=== PATIENT | female | born 1955 | race Caucasian/White ===

== ENCOUNTER 2018-04-02 12:05 | Inpatient (IN) ==
[2018-04-02] MEDS ORDERED: SALINE FLUSH 10ml SYRINGE IV PRN (12:36)
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
--- NOTE | 2018-04-02 13:05 | XRay Report ---
Indication: Fever PROCEDURE: XR chest 1V: Encounter: Initial Comparison: March 21, 2018 Findings: Large right upper lobe lung mass is again noted. There is postobstructive atelectasis in the right upper lobe. The remaining lung garza are grossly clear. No pneumothorax or pleural effusion. Heart size and mediastinal contours are stable. Pulmonary vascularity is normal. Impression: No focal pneumonia seen. .
[2018-04-02] MEDS ORDERED: LEVOFLOXACIN PB 750 MG/150 ML BAG IV SCH (13:15)
[2018-04-02] MEDS: NS 1,000 ML IV SCH (13:21)
[2018-04-02] MEDS ORDERED: MORPHINE SULFATE 4mg INJECTION IVP PRN (13:27)
[2018-04-02] MEDS ORDERED: HYDROCODONE/APAP 5mg/325mg TABLET PO PRN (13:27)
[2018-04-02] MEDS ORDERED: ALPRAZolam 0.25 MG TABLET PO PRN (13:28)
[2018-04-02] MEDS ORDERED: MetroNIDAZOLE PB 500 MG/100 ML BAG IV SCH (15:00)
[2018-04-02] MEDS ORDERED: SALINE FLUSH 10ml SYRINGE ONE (15:54)
[2018-04-02] MEDS ORDERED: IOHEXOL 300mg/ml 75ml INJECTION ONE (15:54)
[2018-04-02] MEDS: NYSTATIN 500,000 units/5 ml ORAL LIQUID PO SCH ×2 (16:39→22:02)
[2018-04-02] MEDS: GUAIFENESIN 400MG TABLET PO SCH ×2 (16:39→22:04)
--- NOTE | 2018-04-02 16:40 | CT Scan Report ---
Indication: Fever, lung CA PROCEDURE: CT chest w con: Encounter: Initial Comparison: Chest x-ray dated April 02, [address] dated March 19, 2018 Technique: Axial CT images were performed through the chest after the administration of intravenous contrast. Coronal and sagittal two-dimensional reformats. Automated Exposure Control and Iterative Reconstruction dose reducing techniques were utilized. Contrast: Omnipaque 300 74 mL Findings: Right upper lobe lung mass appears larger than the prior CT measuring 8.5 x 7.7 cm in diameter on axial image #19 compared to 7.7 x 7.8 cm on the prior study. There is persistent postobstructive atelectasis in the right apex. Stable probable intrapulmonary lymph node along the right minor fissure. Mild dependent atelectasis in both lower lobes. No pneumothorax. Interval development of cavitation within the mass with a few small foci of gas seen on axial images 18 through 22. No axillary adenopathy. Right paratracheal and hilar adenopathy is slightly worsened. Precarinal node on axial image #27 measures 1.4 cm in short axis. Right hilar node on axial image #28 measures 1.4 cm in short axis compared to 1.2 cm previously. Heart size is normal. Slight interval enlargement in a small to moderate anterior pericardial effusion. Great vessels are unchanged. The upper abdomen shows no acute findings. Impression: Interval enlargement of the right upper lobe mass with areas of central necrosis and developing cavitation. The patient has reportedly not yet undergone any type of radiation or chemotherapy to cause necrosis within the tumor. Given this, a developing cavitary pneumonia/abscess within the mass is possible. The mass and lymphadenopathy has grown in the past two weeks. Case was discussed with the ordering physician at 1630 on April 02, 2018. .
[2018-04-02] MEDS ORDERED: GUAIFENESIN LA 600 MG TABLET PO PRN (16:50)
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
[2018-04-02] MEDS: AMPICILLIN/SULBACTAM 3 G in NS 100 ML IV SCH ×2 (18:31→22:03)
[2018-04-02] MEDS: ACETAMINOPHEN 500 MG TABLET PO PRN (23:56)
[2018-04-03] MEDS: NS 1,000 ML IV SCH ×6 (02:42→23:14)
[2018-04-03] MEDS: AMPICILLIN/SULBACTAM 3 G in NS 100 ML IV SCH ×4 (04:05→23:35)
[2018-04-03] MEDS: LEVOTHYROXINE 112 MCG TABLET PO SCH (06:20)
--- NOTE | 2018-04-03 08:49 | Progress Note ---
Oncology Subjective Less fever overnight. She only had 2 drenching night sweats. She is anxious about being in the hospital and does not want to be here. Had skeletal x-ray this morning. Tearful and encounter. Exam Vital signs: Temperature 101.2 F H 04/03/18 08:20 Pulse Rate 102 H 04/03/18 08:20 Respiratory Rate 20 04/03/18 08:20 Blood Pressure 120/66 04/03/18 08:20 Pulse Oximetry 95 04/03/18 08:20 - Constitutional no acute distress - Routine HEENT Exam Head: Present: normocephalic Eye: Present: EOMI, PERRL Throat: other (thrush) - Routine Neck Exam Present: supple. Absent: lymphadenopathy - Routine Respiratory Exam Present: decreased breath sounds, rales (right posterior), rhonchi - Routine Cardiovascular Exam Present: RRR, no murmur - Routine Abdominal Exam Present: soft, non tender - Routine Extremities Exam Absent: clubbing, edema - Routine Skin Exam Present: dry, warm, ecchymosis (at the site of IV infiltration left arm) - Routine Neurological Exam Present: alert, CN II-XII intact - Routine Psychiatric Exam Present: anxious Oncology Results - Labs CBC & Chem 7: 04/03/18 04:35 04/03/18 04:35 Labs: Short CBC 04/02/18 04/03/18 Range/Units 13:27 04:35 WBC 22.8 H 20.6 H (4.5-11.0) T/MM3 Hgb 9.8 L 9.4 L (12-16) GM/DL Hct 31.0 L 30.3 L (36-46) % Plt Count 763 H* 735 H (130-400) T/MM3 BMP 04/02/18 04/03/18 13:26 04:35 Sodium 141 142 Potassium 4.3 4.2 Chloride 99 105 D Carbon Dioxide 28 26 BUN 15.0 12.0 Creatinine 0.6 L 0.6 L Glucose 105 109 Calcium 9.4 9.3 Liver Function 04/02/18 04/03/18 Range/Units 13:26 04:35 Total Bilirubin < 0.10 L (0.20-1.30) MG/DL AST 38 H (14-36) U/L ALT 38 H (1-35) U/L Alkaline Phosphatase 163 H (38-126) U/L Albumin 3.7 3.3 L (3.5-5.0) g/dL Urine 04/02/18 Range/Units 15:39 Urine Color Yellow (YELLOW) Urine Clarity Clear Urine pH 6.0 (5.0-8.0) Ur Specific [place] >=1.030 H (1.015-1.025) Urine Protein Trace A (NEGATIVE) Urine Glucose (UA) Negative (NEGATIVE) Laboratory Tests 04/02/18 04/02/18 04/03/18 13:26 13:27 04:35 WBC 22.8 H 20.6 H Plt Count 763 H* 735 H Neutrophils % (Manual) 81.0 H 87.0 H Neutrophils # (Manual) 18.5 H 17.9 H Albumin 3.7 Globulin 4.1 H 04/03/18 04:35 WBC Plt Count Neutrophils % (Manual) Neutrophils # (Manual) Albumin 3.3 L Globulin Assessment and Plan Assessment and Plan: 1. Squamous cell, poorly differentiated carcinoma of right upper lobe with extensive mass that extends to the chest wall almost to the hilum it is developed cavitation or formation with changes worrisome for postobstructive pneumonia or cavitation and infection. Associated with elevated white count and symptoms of infection. Staging with MRI brain, CT scan of abdomen and pelvis, bone scan showed no evidence of distant metastasis. Lymph nodes are present in the mediastinum and difficult to evaluate if they are truly positive. PDL 1 was positive at 65-70% making her a candidate for Keytruda if metastatic. I do not feel she is a surgical candidate. The differentiation would be between chemoradiation for a stage III or checkpoint inhibitor therapy for a stage IV. WBC is starting to decrease. Continue as antibiotics and supportive care. 2. Monoclonal gammopathy of unknown significance. 0.4 g M spike. Ig A kappa monoclonal protein. Completed skeletal survey and 24-hour urine in process. 3. Elevated white count with symptoms of systemic infection probably related to the primary lung cancer and postobstructive/necrotic cavitation pneumonia with abscess formation. WBC is decreasing. Continue to follow. Recommendations IV antibiotics PET scan as outpatient Supportive care Workup monoclonal gammopathy with 24 urine for protein, creatinine, protein electrophoresis, protein immunofixation, and kappa lambda quantification. Obtain skeletal survey to look for lytic bone lesions. - Time Spent With Patient Total time spent is greater than 50% in coordination of care (as documented) at patient's floor/unit and/or counseling patient: less than 15 minutes
[2018-04-03] MEDS: GUAIFENESIN 400MG TABLET PO SCH ×2 (09:04→15:15)
[2018-04-03] MEDS: ACETAMINOPHEN 500 MG TABLET PO PRN ×2 (09:04→21:42)
[2018-04-03] MEDS: NYSTATIN 500,000 units/5 ml ORAL LIQUID PO SCH ×4 (09:04→21:42)
--- NOTE | 2018-04-03 15:02 | Progress Note ---
- Date 04/03/18 Subjective: Julia reports that she is doing better today. She states she only had 2 night sweats last night compared to 6 or 7. She states that her cough is better and she is not bringing anything up. She asks to cut back on the amount of Mucinex because it's drying her out too much. She denies feeling short of breath. She denies any abdominal pain, but earlier was having some cramping. The cramps resolved after she had a bowel movement. She denies any nausea or vomiting. She denies feeling weak or dizzy or lightheaded. She is planning on going outside this afternoon. Objective Vital signs: Temperature 97.7 F 04/03/18 10:56 Pulse Rate 90 04/03/18 10:56 Respiratory Rate 20 04/03/18 10:56 Blood Pressure 94/54 04/03/18 10:56 Pulse Oximetry 97 04/03/18 10:56 Height/Weight/BMI: Height 1.65 m Weight 59 kg - Constitutional Present: no acute distress, well nourished, well developed - Routine HEENT Exam Head: Present: normocephalic Eye: Present: PERRL. Absent: conjunctival icterus, scleral injection ENT: Absent: oropharynx clear (thrush noted - improving per family) - Routine Respiratory Exam Present: CTA bilaterally - Routine Cardiovascular Exam Present: RRR, S1, S2 - Routine Abdominal Exam Present: soft, normoactive bowel sounds, non distended, non tender - Routine Extremities Exam Present: no edema, pulses intact, normal capillary refill Comments: ecchymosis to left forearm - reportedly improving since keeping cool compresses on it - Routine Musculoskeletal Exam Musculoskeletal: Absent: no clubbing or cyanosis (clubbing of finger tips) - Routine Skin Exam Present: intact, dry, warm - Routine Neurological Exam Present: alert, oriented X3, CN II-XII intact, moving all extremities, vision grossly intact, hearing grossly intact, normal speech. Absent: facial asymmetry - Routine Psychiatric Exam Present: normal affect, normal thought process, cooperative Results - Labs CBC & Chem 7: 04/03/18 04:35 04/03/18 04:35 Microbiology Results: Microbiology 04/02/18 13:29 Peripheral/Iv Start Blood Culture - Preliminary No Growth After 1 Day 04/02/18 13:33 Peripheral/Iv Start Blood Culture - Preliminary No Growth After 1 Day Assessment and Plan (1) Pulmonary abscess Problem details: Probable; versus tumor necrosis Current visit: Yes Status: Acute Assessment and Plan: Impression: Tumor necrosis/pulmonary abscess Sepsis - fever, leukocytosis, tachycardia Thrombocytosis, likely reactive Large RUL lung mass, NSCLC-stage IIIA Dehydration, improving Hypothyroidism Anxiety Thrush Plan: 04/03/18 Febrile this morning at 101.2. Continue Unasyn for cavitary lesion/abscess to right upper lobe. WBC improved to 20.6; platelets improved to 734. CT scan was personally reviewed. Blood pressure has been low-normal; occasionally mildly tachycardic, associated with fever. Reduce the rate of normal saline to 100 ml/hr. Continue Nystatin for thrush. Reduce frequency of Mucinex per request. Dr. Trujillo following - workup for monoclonal gammopathy. Skeletal survey done today to look for lytic lesions - pending report. DVT Prophylaxis: SCD's Resuscitation Status: Full Code - Physician Narrative Physician: Winter Caballero MD Narrative: Date: 04/03/18 Time: 1550 I have independently evaluated and examined this patient. I reviewed the chart, the patient's history, and the MERCHANDISING CONSULTANT/PA's documented findings as above. We discussed and formulated the assessment and plan as above with additions as below: Mrs. Gibson was seen with her daughter and granddaughter at bedside. She reports she only had night sweats twice last night and fever isn't is high today. She didn't sleep well but her appetite is little better. Her daughter reports the patient is complained of pain in the undersurface of her right arm recently- patient rubs over the triceps indicating it feels like a tight sensation without sensory loss or paresthesias. She compares it to feeling like a tourniquet is on her arm but just on the undersurface. MAXIMUM TEMPERATURE 101.2 NAD, more cheerful than she was yesterday Respirations nonlabored, good airflow, breath sounds clear Sensation intact to light touch along triceps, sensation present in all 5 digits of the right hand, relationship management lead symmetric Skeletal survey obtained this morning-report pending White count slightly improved Continue current antibiotics; blood cultures negative after 24 hours. Hospital Course Summary Disclaimer: The visit summary below is not to be considered part of the above Progress Note. Hospital Course: Impression: 1. Recurrent colitis 2. R/O Sepsis 3. Large lung mass, NSCLC 4. Dehydration 5. Hypothyroidism 6. Anxiety 7. Acute bronchitis 8. Thrush Plan: 04/02/[address] Caballero Will obtain labs, blood cultures, UA, CXR and stool panel. Start Empiric Levaquin and Flagyl to cover both GI and pulm components. she is less tender than prior stay, so will get labs and then decide if we need to repeat the CT of the abdomen. Provide PRN pain medications, Hold off on antiemetics unless nausea becomes an issue due to multiple intolerances. IVF for dehydration and support. She is severely anxious- add PRN xanax. consider adding SSRI for ongoing tx. Will add Guaifenesin and Acapella as pt prefers to avoid inhaled meds, and she is not overtly wheezing. Consult Dr. Trujillo, as he would like to see her today to further establish plan of care for her cancer. SCDs for DVT pt. Add Nystatin suspension for likely thrush. Continue Synthroid. Confirmed Full Code 04/03/18 Febrile this morning at 101.2. Continue Unasyn for cavitary lesion/abscess to right upper lobe. WBC improved to 20.6; platelets improved to 734. CT scan was personally reviewed. Blood pressure has been low-normal; occasionally mildly tachycardic, associated with fever. Reduce the rate of normal saline to 100 ml/hr. Continue Nystatin for thrush. Dr. Trujillo following - workup for monoclonal gammopathy. Skeletal survey done today to look for lytic lesions - pending report.
[2018-04-03] MEDS ORDERED: GUAIFENESIN 400MG TABLET PO PRN (15:05)
[2018-04-04] MEDS: AMPICILLIN/SULBACTAM 3 G in NS 100 ML IV SCH ×4 (06:20→22:33)
[2018-04-04] MEDS: NS 1,000 ML IV SCH ×3 (07:58→20:47)
[2018-04-04] MEDS: LEVOTHYROXINE 112 MCG TABLET PO SCH (07:59)
--- NOTE | 2018-04-04 09:38 | XRay Report ---
Indication: MGUS PROCEDURE: XR bone survey, 1 yr to adult: Encounter: Initial Comparison: None Findings: AP and lateral views of the cervical spine: No acute fracture or subluxation. Mild degenerative disk disease at C5-C6. Evidence of old trauma to the C6 spinous process. No lytic or blastic osseous lesions. AP and lateral views of the thoracic spine: No acute fracture or subluxation. No lytic or blastic osseous lesions. AP and lateral views of the lumbar spine: No acute fracture or subluxation. No lytic or blastic osseous lesions. AP view of the right humerus: Normal AP view of the right forearm: Negative AP view of the left forearm: Normal AP view of the pelvis: No acute fracture or subluxation. No lytic or blastic osseous lesions. AP view of the right femur: Normal AP view of the left femur: Normal AP view of the right tibia and fibula: Evidence of old trauma to the lateral malleolus, otherwise normal. AP view of the left tibia and fibula: Normal AP and lateral views of the skull: No acute fracture. No lytic or blastic calvarial lesions. AP view of the left humerus: Normal Impression: No lytic or blastic osseous metastatic disease seen. .
--- NOTE | 2018-04-04 09:42 | Progress Note ---
Oncology Subjective Patient continues to have fevers. She continues to have drenching night sweats. Cough persists. No real shortness of breath. She complains of diarrhea this morning. She really doesn't have abdominal pain. She is being more active. Review of systems: Gen.: Positive for fever or chills, malaise Eyes: Negative eye discharge, eye pain ENT: Negative for nosebleeds, mouth sores Lymph: Negative enlarged lymph nodes, positive night sweats Respiratory: Positive for cough, shortness of breath, negative for hemoptysis, Cardiac: Negative for chest pain, palpitations, or swelling GI: Negative for nausea, negative for vomiting, positive for diarrhea negative for abdominal pain Genitourinary: No urgency, no dysuria, no hematuria Musculoskeletal: Positive for weakness, no joint pain Neurologic: Negative for headache, negative for focal weakness, negative for numbness Exam Vital signs: Temperature 98.7 F 04/04/18 08:00 Pulse Rate 102 H 04/04/18 08:00 Respiratory Rate 20 04/04/18 08:00 Blood Pressure 102/61 04/04/18 08:00 Pulse Oximetry 97 04/04/18 08:00 - Constitutional no acute distress, thin - Routine HEENT Exam Head: Present: normocephalic Eye: Present: EOMI, PERRL ENT: Present: mucous membranes moist - Routine Neck Exam Present: supple. Absent: lymphadenopathy - Routine Respiratory Exam Present: decreased breath sounds, rhonchi - Routine Cardiovascular Exam Present: RRR, no murmur - Routine Abdominal Exam Present: soft, non distended, non tender. Absent: organomegaly - Routine Extremities Exam Absent: cyanosis, clubbing, edema - Routine Skin Exam Present: dry, warm - Routine Neurological Exam Present: alert, CN II-XII intact - Routine Psychiatric Exam Present: normal affect Oncology Results - Labs CBC & Chem 7: 04/04/18 04:29 04/04/18 04:29 Labs: Short CBC 04/04/18 04/04/18 Range/Units 04:29 04:29 WBC Cancelled 28.4 H* Hgb Cancelled 9.9 L Hct Cancelled 31.7 L Plt Count Cancelled 781 H* BMP 04/04/18 04:29 Sodium 142 Potassium 4.0 Chloride 103 Carbon Dioxide 27 BUN 9.0 Creatinine 0.6 L Glucose 118 H Calcium 9.8 Urine 04/03/18 Range/Units 20:00 Urine Protein 22 mg/dL Laboratory Tests 04/03/18 04/03/18 04/04/18 04:35 20:00 04:29 WBC 20.6 H 28.4 H* Plt Count 781 H* Ur Total Protein 24 Hr 858 H Assessment and Plan Assessment and Plan: 1. 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 Associated with elevated white count and symptoms of infection. Staging with MRI brain, CT scan of abdomen and pelvis, bone scan showed no evidence of distant metastasis. Lymph nodes are present in the mediastinum and difficult to evaluate if they are truly positive. PDL 1 was positive at 65-70% making her a candidate for Keytruda if metastatic. I do not feel she is a surgical candidate. The differentiation would be between chemoradiation for a stage III or checkpoint inhibitor therapy for a stage IV. Fever persists and WBC increased. Will obtain sputum culture. 2. Monoclonal gammopathy of unknown significance. 0.4 g M spike. IgA [place] monoclonal protein. Will need workup with skeletal survey and 24-hour urine. Will obtain this while hospitalized. 24 hour urine remarkable for proteinuria with 848 mg per 24 hours 3. Elevated white count with symptoms of systemic infection probably related to the primary lung cancer and postobstructive/necrotic cavitation pneumonia with abscess formation. WBC 28K today. Will obtain CRP and sputum culture. 4. Diarrhea. Will obtain C. difficile and will also add Lactobacillus Recommendations IV antibiotics PET scan as outpatient Supportive care Workup monoclonal gammopathy - Time Spent With Patient Total time spent is greater than 50% in coordination of care (as documented) at patient's floor/unit and/or counseling patient: 25 - 35 minutes
[2018-04-04] MEDS: NYSTATIN 500,000 units/5 ml ORAL LIQUID PO SCH ×4 (09:55→22:32)
[2018-04-04] MEDS: LACTOBACILLUS (15B cfu) CAPSULE PO SCH ×2 (11:23→17:30)
--- NOTE | 2018-04-04 17:08 | Progress Note ---
- Date 04/04/18 Subjective: Overall, Julia is about the same. She had 2 night sweats last night that left her drenched. She continues to have fevers, but they are becoming more infrequent. She denies any abdominal pain, nausea or vomiting. She is eating well. She had one episode of diarrhea today. She has been up walking the halls and has been outside. We discussed discontinuing IV fluids, but she is hesitant because her urine output has gone down. Objective Vital signs: Temperature 99.6 F 04/04/18 16:00 Pulse Rate 101 H 04/04/18 16:00 Respiratory Rate 17 04/04/18 16:00 Blood Pressure 91/57 04/04/18 16:00 Pulse Oximetry 97 04/04/18 16:00 Height/Weight/BMI: Height 1.65 m Weight 59 kg - Constitutional Present: no acute distress, well nourished, well developed, thin - Routine HEENT Exam Head: Present: normocephalic Eye: Absent: conjunctival icterus, scleral injection ENT: Present: mucous membranes moist, oropharynx clear - Routine Respiratory Exam Present: CTA bilaterally - Routine Cardiovascular Exam Present: RRR, S1, S2 - Routine Abdominal Exam Present: soft, normoactive bowel sounds, non distended, non tender - Routine Extremities Exam Present: no edema, pulses intact - Routine Skin Exam Present: intact, dry, warm - Routine Neurological Exam Present: alert, oriented X3, normal speech - Routine Psychiatric Exam Present: normal affect, normal thought process, cooperative Results - Labs CBC & Chem 7: 04/04/18 04:29 04/04/18 04:29 Microbiology Results: Microbiology 04/02/18 13:33 Peripheral/Iv Start Blood Culture - Preliminary No Growth After 2 Days 04/02/18 13:29 Peripheral/Iv Start Blood Culture - Preliminary No Growth After 2 Days Assessment and Plan (1) Pulmonary abscess Problem details: Probable; versus tumor necrosis Current visit: Yes Status: Acute Assessment and Plan: Impression: Tumor necrosis/pulmonary abscess Sepsis - fever, leukocytosis, tachycardia Thrombocytosis, likely reactive Large RUL lung mass, NSCLC-stage IIIA Dehydration, improving Hypothyroidism Anxiety Thrush Plan: 04/04/18 White blood cell count is back up to 28.4. Platelet count has also increased to 781. Continue Unasyn, if white count doesn't respond or if fevers worsen, may need to consider expanding antibiotics. Blood cultures negative after 2 days. CRP is elevated at 142.5. Bone survey was negative for lytic or metastatic lesions. Continue IV fluids for now, normal saline at 50 ml per hour. Electrolytes are stable. Dr. Trujillo is working her up for Monoclonal gammopathy DVT Prophylaxis: SCD's Resuscitation Status: Full Code - Physician Narrative Physician: Winter Caballero MD Narrative: Date: 04/04/18 Time: 0 I have independently evaluated and examined this patient. I reviewed the chart, the patient's history, and the GUIDEMAN/PA's documented findings as above. We discussed and formulated the assessment and plan as above with additions as below: Mrs. Gibson was seen with family members at the bedside. She reports that she "feels great". She had drenching sweats twice last night requiring that the bed be changed but temperature wasn't as high. Telemetry patches are causing itching and rhythm is consistently been sinus rhythm subsequently I discontinued telemetry. The patient was alert and appeared well Respirations nonlabored with good airflow, breath sounds clear Regular cardiac rhythm Results bone survey noted Check procalcitonin in the morning with a.m. labs. Hospital Course Summary Disclaimer: The visit summary below is not to be considered part of the above Progress Note. Hospital Course: Impression: 1. Recurrent colitis 2. R/O Sepsis 3. Large lung mass, NSCLC 4. Dehydration 5. Hypothyroidism 6. Anxiety 7. Acute bronchitis 8. Thrush Plan: 04/02/[address]. Caballero Will obtain labs, blood cultures, UA, CXR and stool panel. Start Empiric Levaquin and Flagyl to cover both GI and pulm components. she is less tender than prior stay, so will get labs and then decide if we need to repeat the CT of the abdomen. Provide PRN pain medications, Hold off on antiemetics unless nausea becomes an issue due to multiple intolerances. IVF for dehydration and support. She is severely anxious- add PRN xanax. consider adding SSRI for ongoing tx. Will add Guaifenesin and Acapella as pt prefers to avoid inhaled meds, and she is not overtly wheezing. Consult Dr. Trujillo, as he would like to see her today to further establish plan of care for her cancer. SCDs for DVT pt. Add Nystatin suspension for likely thrush. Continue Synthroid. Confirmed Full Code 04/03/18 Febrile this morning at 101.2. Continue Unasyn for cavitary lesion/abscess to right upper lobe. WBC improved to 20.6; platelets improved to 734. CT scan was personally reviewed. Blood pressure has been low-normal; occasionally mildly tachycardic, associated with fever. Reduce the rate of normal saline to 100 ml/hr. Continue Nystatin for thrush. Dr. Trujillo following - workup for monoclonal gammopathy. Skeletal survey done today to look for lytic lesions - pending report. 04/04/18 White blood cell count is back up to 28.4. Platelet count has also increased to 781. Continue Unasyn, if white count doesn't respond or if fevers worsen, may need to consider expanding antibiotics. Blood cultures negative after 2 days. CRP is elevated at 142.5. Bone survey was negative for lytic or metastatic lesions. Continue IV fluids for now, normal saline at 50 ml per hour. Electrolytes are stable.
[2018-04-04] MEDS: ACETAMINOPHEN 500 MG TABLET PO PRN (22:32)
[2018-04-05] MEDS: AMPICILLIN/SULBACTAM 3 G in NS 100 ML IV SCH ×3 (04:56→16:39)
[2018-04-05] MEDS: LEVOTHYROXINE 112 MCG TABLET PO SCH (05:45)
[2018-04-05] MEDS: NS 1,000 ML IV SCH (07:59)
[2018-04-05] MEDS: NYSTATIN 500,000 units/5 ml ORAL LIQUID PO SCH ×4 (09:41→20:12)
[2018-04-05] MEDS: LACTOBACILLUS (15B cfu) CAPSULE PO SCH ×2 (09:41→16:37)
--- NOTE | 2018-04-05 11:51 | Progress Note ---
- Date 04/05/18 Subjective: Julia is feeling about the same. She had 3 drenching night sweats last night compared to 2 the 2 nights before. Her last fever was 0400 on 04/04. She denies any abdominal pain or cramping, nausea, or vomiting. She denies feeling weak or dizzy. No shortness of breath. She reports that she still isn't urinating very much. Objective Vital signs: Temperature 99.1 F 04/05/18 11:22 Pulse Rate 91 04/05/18 11:22 Respiratory Rate 18 04/05/18 11:22 Blood Pressure 120/64 04/05/18 11:22 Pulse Oximetry 96 04/05/18 11:22 Height/Weight/BMI: Height 1.65 m Weight 60 kg - Constitutional Present: no acute distress, well nourished, well developed, thin - Routine HEENT Exam Head: Present: normocephalic Eye: Absent: conjunctival icterus, scleral injection ENT: Present: mucous membranes dry (thrush improving) - Routine Respiratory Exam Present: CTA bilaterally - Routine Cardiovascular Exam Present: RRR, S1, S2 - Routine Abdominal Exam Present: soft, normoactive bowel sounds, non distended, non tender - Routine Extremities Exam Present: no edema - Routine Back/Spine/Pelvis Exam Back/Spine: Present: full ROM - Routine Musculoskeletal Exam Musculoskeletal: Present: moving extremities well - Routine Skin Exam Present: intact, dry, warm - Routine Neurological Exam Present: alert, oriented X3, moving all extremities, normal speech - Routine Psychiatric Exam Present: normal affect, normal thought process, cooperative Results - Labs CBC & Chem 7: 04/05/18 04:30 04/05/18 04:30 Microbiology Results: Microbiology 04/02/18 13:33 Peripheral/Iv Start Blood Culture - Preliminary No Growth After 2 Days 04/02/18 13:29 Peripheral/Iv Start Blood Culture - Preliminary No Growth After 2 Days Assessment and Plan (1) Pulmonary abscess Problem details: Probable; versus tumor necrosis Current visit: Yes Status: Acute Assessment and Plan: Impression: Tumor necrosis/pulmonary abscess Sepsis - fever, leukocytosis, tachycardia Thrombocytosis, likely reactive Large RUL lung mass, NSCLC-stage IIIA Dehydration, improving Hypothyroidism Anxiety Thrush Plan: 04/05/18 White blood cell count decreased to 22.2. Platelet count improving, 689. Procalcitonin was negative. Continue Unasyn, though may need to consider expanding antibiotics. Blood cultures negative after 2 days. CRP was elevated yesterday at 142.5. Consider consulting Dr. Molina - he treated Julia during her last hospital stay and performed bronch on 03/21/18 Continue IV fluids for now, normal saline at 50 ml per hour. Electrolytes are stable. Monoclonal gammopathy w/u per Dr. Trujillo. DVT Prophylaxis: SCD's Resuscitation Status: Full Code - Physician Narrative Narrative: Date: 04/05/18 Time: 1903 S: Pt reports feeling better but still has some f/c but denies any n/v/d, cp or sob. Denies any cough. O: Gen: mild distress Cards: RRR without murmurs Lungs: CTAB without wheezes A/P: PNA -Lung abscess? Post obstructive? -Fever today, not improving as much-->Will expand abx coverage to vanc/zosyn -Will consult pulm tomorrow and possibly discuss case with ID Hospital Course Summary Disclaimer: The visit summary below is not to be considered part of the above Progress Note. Hospital Course: Impression: 1. Recurrent colitis 2. R/O Sepsis 3. Large lung mass, NSCLC 4. Dehydration 5. Hypothyroidism 6. Anxiety 7. Acute bronchitis 8. Thrush Plan: 04/02/[address] Caballero Will obtain labs, blood cultures, UA, CXR and stool panel. Start Empiric Levaquin and Flagyl to cover both GI and pulm components. she is less tender than prior stay, so will get labs and then decide if we need to repeat the CT of the abdomen. Provide PRN pain medications, Hold off on antiemetics unless nausea becomes an issue due to multiple intolerances. IVF for dehydration and support. She is severely anxious- add PRN xanax. consider adding SSRI for ongoing tx. Will add Guaifenesin and Acapella as pt prefers to avoid inhaled meds, and she is not overtly wheezing. Consult Dr. Trujillo, as he would like to see her today to further establish plan of care for her cancer. SCDs for DVT pt. Add Nystatin suspension for likely thrush. Continue Synthroid. Confirmed Full Code 04/03/18 Febrile this morning at 101.2. Continue Unasyn for cavitary lesion/abscess to right upper lobe. WBC improved to 20.6; platelets improved to 734. CT scan was personally reviewed. Blood pressure has been low-normal; occasionally mildly tachycardic, associated with fever. Reduce the rate of normal saline to 100 ml/hr. Continue Nystatin for thrush. Dr. Trujillo following - workup for monoclonal gammopathy. Skeletal survey done today to look for lytic lesions - pending report. 04/04/18 White blood cell count is back up to 28.4. Platelet count has also increased to 781. Continue Unasyn, if white count doesn't respond or if fevers worsen, may need to consider expanding antibiotics. Blood cultures negative after 2 days. CRP is elevated at 142.5. Bone survey was negative for lytic or metastatic lesions. Continue IV fluids for now, normal saline at 50 ml per hour. Electrolytes are stable. 04/05/18 White blood cell count decreased to 22.2. Platelet count improving, 689. Procalcitonin was negative. Continue Unasyn, though may need to consider expanding antibiotics. Blood cultures negative after 2 days. CRP was elevated yesterday at 142.5. Consider consulting Dr. Molina - he treated Julia during her last hospital stay and performed bronch on 03/21/18
[2018-04-05] MEDS ORDERED: PROPOFOL 500 MG/50 ML VIAL ONE ×2 (13:36→14:02)
[2018-04-05] MEDS ORDERED: FentaNYL 250 MCG/5 ML INJECTION ONE (13:37)
--- NOTE | 2018-04-05 14:34 | Progress Note ---
<Inna Glover L - Last Filed: 04/05/18 16:14> Oncology Subjective Alone in room. Continues to feel has fevers, continues with night sweats. Denies chills. Denies headache or vision changes. No cough or shortness of air. Eating and drinking fair. No diarrhea or constipation." I'm ready to get started on treatment." (for the cancer) General: + fever, + night sweats Eyes: No redness, no pain, no diplopia ENT: No mouth sores, no trouble swallowing Cardiac: No chest pain no palpitations Pulmonary: No cough, no shortness of breath, no wheezing Abdomen: No pain, no nausea vomiting, no diarrhea or constipation : No urgency, frequency, dysuria, or hematuria Musculoskeletal: No arthritis, no myalgias Neurological: No headaches, no focal weakness Skin: No rash, no sores Psychiatric: Some anxiety w/ cancer diagnosis/anxious to begin treatment. Exam Vital signs: Temperature 99.1 F 04/05/18 11:22 Pulse Rate 91 04/05/18 11:22 Respiratory Rate 18 04/05/18 11:22 Blood Pressure 120/64 04/05/18 11:22 Pulse Oximetry 96 04/05/18 11:22 Narrative: Acetaminophen (Tylenol) 500 mg PO Q5H PRN PRN Reason: Discomfort Last Admin: 04/04/18 22:32 Dose: 500 mg Hydrocodone Bitart/Acetaminophen ([place] 5/325) 1 tab PO Q4H PRN PRN Reason: Pain Alprazolam (Xanax 0.25 Mg) 0.25 mg PO Q6H PRN PRN Reason: Anxiety Guaifenesin (Mucinex) 400 mg PO TID PRN Sodium Chloride (Normal Saline) 1,000 mls @ 50 mls/hr IV .Q20H ON LICENSE OF [facility] Last Infusion: 04/05/18 11:53 Dose: 50 mls/hr Ampicillin Sodium/Sulbactam (Sodium 3 g/ Sodium Chloride) 100 mls @ 200 mls/hr IV Q6H ON LICENSE OF [facility] Last Infusion: 04/05/18 11:52 Dose: Infused Lactobacillus Acidophilus (Culturelle) 2 cap PO BIDWM ON LICENSE OF [facility] Last Admin: 04/05/18 09:41 Dose: 2 cap Levothyroxine Sodium (Synthroid) 112 mcg PO ACB ON LICENSE OF [facility] Last Admin: 04/05/18 05:45 Dose: 112 mcg Morphine Sulfate (Morphine Sulfate Inj) 2 mg IVP Q3-4HR PRN PRN Reason: Pain Nystatin (Mycostatin) 5 ml PO QID ON LICENSE OF [facility] Last Admin: 04/05/18 14:28 Dose: 5 ml Sodium Chloride (Iv Flush) 10 ml IV PRN PRN PRN Reason: Flushing Last Admin: 04/02/18 22:03 Dose: 10 ml - Constitutional no acute distress, well developed, cooperative - Routine HEENT Exam Head: Present: normocephalic Eye: Present: EOMI ENT: Present: mucous membranes moist - Routine Neck Exam Present: supple. Absent: lymphadenopathy - Routine Respiratory Exam Present: CTA bilaterally. Absent: wheezes, crackles - Routine Cardiovascular Exam Present: RRR, no murmur - Routine Abdominal Exam Present: soft, normoactive bowel sounds, non tender. Absent: organomegaly, mass - Routine Extremities Exam Present: no edema, full ROM - Routine Skin Exam Present: intact, dry, warm - Routine Neurological Exam Present: alert, oriented X3, moving all extremities - Routine Psychiatric Exam Present: normal affect, cooperative Oncology Results - Labs CBC & Chem 7: 04/05/18 04:30 04/05/18 04:30 Labs: Short CBC 04/05/18 Range/Units 04:30 WBC 22.2 H (4.5-11.0) T/MM3 Hgb 9.7 L (12-16) GM/DL Hct 30.8 L (36-46) % Plt Count 689 H (130-400) T/MM3 [facility] 04/05/18 04:30 Sodium 142 Potassium 4.0 Chloride 105 Carbon Dioxide 24 BUN 11.0 Creatinine 0.5 L Glucose 116 H Calcium 9.3 Assessment and Plan Assessment and Plan: Assessment 1. 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 Associated with elevated white count and symptoms of infection. Staging with MRI brain, CT scan of abdomen and pelvis, bone scan showed no evidence of distant metastasis. Lymph nodes are present in the mediastinum and difficult to evaluate if they are truly positive. PDL 1 was positive at 65-70% making her a candidate for Keytruda if metastatic. I do not feel she is a surgical candidate. The differentiation would be between chemoradiation for a stage III or checkpoint inhibitor therapy for a stage IV. Fever persists and WBC increased. Will obtain sputum culture. 2. Monoclonal gammopathy of unknown significance. 0.4 g M spike. IgA [place] monoclonal protein. Will need workup with skeletal survey and 24-hour urine. Will obtain this while hospitalized. 24 hour urine remarkable for proteinuria with 848 mg per 24 hours. Skeletal survey negative for lytic or blastic osseous metastatic disease. 3. Elevated white count with symptoms of systemic infection probably related to the primary lung cancer and postobstructive/necrotic cavitation pneumonia with abscess formation. WBC 28K today. Will obtain CRP and sputum culture. 4. Diarrhea. Will obtain C. difficile and will also add Lactobacillus/ Note: c- difficile was canceled. Patient with normal consistency stool/no diarrhea Recommendations Continue supportive care/antibiotics. Continue to follow counts, renal and liver function. - Time Spent With Patient Total time spent is greater than 50% in coordination of care (as documented) at patient's floor/unit and/or counseling patient: less than 15 minutes <Deangelo Trujillo - Last Filed: 04/05/18 17:47> Exam Vital signs: Temperature 102.3 F H 04/05/18 16:25 Pulse Rate 100 04/05/18 16:05 Respiratory Rate 18 04/05/18 16:05 Blood Pressure 106/56 04/05/18 16:05 Pulse Oximetry 94 04/05/18 16:05 Oncology Results - Labs CBC & Chem 7: 04/05/18 04:30 04/05/18 04:30 Labs: Short CBC 04/05/18 Range/Units 04:30 WBC 22.2 H (4.5-11.0) T/MM3 Hgb 9.7 L (12-16) GM/DL Hct 30.8 L (36-46) % Plt Count 689 H (130-400) T/MM3 BMP 04/05/18 04:30 Sodium 142 Potassium 4.0 Chloride 105 Carbon Dioxide 24 BUN 11.0 Creatinine 0.5 L Glucose 116 H Calcium 9.3 Assessment and Plan Assessment and Plan: Patient examined, chart reviewed, I participated in the development of the plan of care of this patient with Ida Glover. White blood cell count has decreased slightly from 28K to 22K. Continues with fever. Diarrhea has resolved. CRP elevated at 142.5 No sputum culture gm stain sent. - Time Spent With Patient Total time spent is greater than 50% in coordination of care (as documented) at patient's floor/unit and/or counseling patient:
[2018-04-05 16:00] VITALS: BMI 22.0
[2018-04-05] MEDS: ACETAMINOPHEN 500 MG TABLET PO PRN (16:37)
[2018-04-05] MEDS ORDERED: VANCOMYCIN - PHARMACY CONSULT MC ONE (19:02)
[2018-04-05] MEDS: PIPERACILLIN/TAZOBACTAM 3.375 GM in NS 100 ML IV SCH (20:02)
[2018-04-06] MEDS: ACETAMINOPHEN 500 MG TABLET PO PRN (01:16)
[2018-04-06] MEDS: PIPERACILLIN/TAZOBACTAM 3.375 GM in NS 100 ML IV SCH ×3 (01:18→12:41)
[2018-04-06] MEDS: NS 1,000 ML IV SCH ×2 (06:45→10:17)
[2018-04-06] MEDS: LEVOTHYROXINE 112 MCG TABLET PO SCH (07:35)
[2018-04-06] MEDS: LACTOBACILLUS (15B cfu) CAPSULE PO SCH (10:15)
[2018-04-06] MEDS: NYSTATIN 500,000 units/5 ml ORAL LIQUID PO SCH ×3 (10:16→17:11)
--- NOTE | 2018-04-06 11:04 | Pharmacy Consult-Antibiotics ---
Pharmacy Consult-Vancomycin - Laboratory Information WBC 21.6 T/MM3 (4.5-11.0) H 04/06/18 04:21 BUN 10.0 MG/DL (7-17) 04/06/18 04:21 Creatinine 0.7 mg/dL (0.7-1.2) D 04/06/18 04:21 Procalcitonin 0.07 NG/ML 04/05/18 04:30 - Consult Information VANCOMYCIN CONSULT: Dx: Sepsis Current Renal Fx: SCr = 0.7mg/dl. Will give Vancomycin 1,000mg IV q12hrs. Trough is expected to be around 17 to 19. Will continue to monitor and adjust regimen to maintain therapeutic levels. Thank you.
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
[2018-04-06 12:34] VITALS: RESP 16; O2SAT 97
--- NOTE | 2018-04-06 12:42 | Progress Note ---
<Inna Gloevr - Last Filed: 04/06/18 16:02> Oncology Subjective Alone in room at time of intake. Continues with fever, night sweats. Continues with intermittent cough, shortness of air with exertion. Denies nausea or vomiting. No diarrhea or constipation. General: + fever, + night sweats Eyes: No redness, no pain, no diplopia ENT: No mouth sores, no trouble swallowing Cardiac: No chest pain no palpitations Pulmonary: + cough, +shortness of breath, no wheezing Abdomen: No pain, no nausea vomiting, no diarrhea or constipation : No urgency, frequency, dysuria, or hematuria Musculoskeletal: No arthritis, no myalgias Neurological: No headaches, no focal weakness Skin: No rash, no sores Psychiatric: No anxiety, no depression Exam Vital signs: Temperature 98.8 F 04/06/18 12:32 Pulse Rate 87 04/06/18 12:32 Respiratory Rate 16 04/06/18 12:32 Blood Pressure 106/57 04/06/18 12:32 Pulse Oximetry 97 04/06/18 12:32 - Constitutional no acute distress, well developed, cooperative - Routine HEENT Exam Head: Present: normocephalic Eye: Present: EOMI Nose: moist mucous membranes - Routine Neck Exam Present: supple. Absent: lymphadenopathy - Routine Respiratory Exam Present: decreased breath sounds. Absent: wheezes - Routine Cardiovascular Exam Present: RRR, no murmur - Routine Abdominal Exam Present: soft, normoactive bowel sounds, non tender - Routine Extremities Exam Present: no edema, full ROM - Routine Skin Exam Present: intact, dry. Absent: rash - Routine Neurological Exam Present: alert, oriented X3 - Routine Psychiatric Exam Present: normal affect, [facility] Oncology Results - Labs CBC & Chem 7: 04/06/18 04:21 04/06/18 04:21 Labs: Short CBC 04/06/18 Range/Units 04:21 WBC 21.6 H (4.5-11.0) T/MM3 Hgb 9.2 L (12-16) GM/DL Hct 29.6 L (36-46) % Plt Count 768 H* (130-400) T/MM3 BMP 04/06/18 04:21 Sodium 140 Potassium 3.5 L Chloride 104 Carbon Dioxide 23 BUN 10.0 Creatinine 0.7 D Glucose 121 H Calcium 9.3 Assessment and Plan Assessment and Plan: 1. 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 Associated with elevated white count and symptoms of infection. Staging with MRI brain, CT scan of abdomen and pelvis, bone scan showed no evidence of distant metastasis. Lymph nodes are present in the mediastinum and difficult to evaluate if they are truly positive. PDL 1 was positive at 65-70% making her a candidate for Keytruda if metastatic. I do not feel she is a surgical candidate. The differentiation would be between chemoradiation for a stage III or checkpoint inhibitor therapy for a stage IV. Fever persists and WBC increased. Seen by pulmonology today, 04/06/18; recommends a percutaneous needle drainage of the lung mass, sending fluid for cultures. 2. Monoclonal gammopathy of unknown significance. 0.4 g M spike. IgA [place] monoclonal protein. Will need workup with skeletal survey and 24-hour urine. Will obtain this while hospitalized. 24 hour urine remarkable for proteinuria with 848 mg per 24 hours. Skeletal survey negative for lytic or blastic osseous metastatic disease. 3. Elevated white count with symptoms of systemic infection probably related to the primary lung cancer and postobstructive/necrotic cavitation pneumonia with abscess formation. 4. Diarrhea; resolved. Plan Discussed case with hospitalist. Decision was made to get sample from lung lesion to rule out infection before cancer treatment can begin. Radiology is unable to do this at [place] so pt will be transferred to [facility] for further care. We will continue to follow pt there. - Time Spent With Patient Total time spent is greater than 50% in coordination of care (as documented) at patient's floor/unit and/or counseling patient: less than 15 minutes <Nannette Zamora - Last Filed: 04/07/18 10:27> Exam Vital signs: Temperature 99.3 F 04/06/18 16:00 Pulse Rate 92 04/06/18 16:00 Respiratory Rate 16 04/06/18 16:00 Blood Pressure 111/61 04/06/18 16:00 Pulse Oximetry 97 04/06/18 16:00 Oncology Results - Labs CBC & Chem 7: 04/06/18 04:21 04/06/18 04:21 Assessment and Plan Assessment and Plan: I have seen and examined the patient. I discussed with hospitalist the transfer to [place] for possible CT-guided drainage of the fluid collection in the chest to rule out abscess. - Time Spent With Patient Total time spent is greater than 50% in coordination of care (as documented) at patient's floor/unit and/or counseling patient:
--- NOTE | 2018-04-06 15:20 | Discharge Summary ---
Discharge Information Date of admission: 04/02/18 12:05 Anticipated date of discharge: 04/06/18 Attending Physician: Rufina Anaya MD Primary care physician: Carmen Bartholomew APRN Consults: 04/02/18 13:15 Physician Consult [CONS] Routine Consulting Provider: Deangelo Trujillo Reason For Exam: Lung mass Ordering Provider has Notified Leader Writer: Yes Comment: Notified by pt- please notify doc of room number - Discharge Diagnosis (1) Pulmonary abscess Status: Acute - Laboratory Labs: 04/06/18 04:21 04/06/18 04:21 - Microbiology Microbiology 04/02/18 13:33 Peripheral/Iv Start Blood Culture - Preliminary No Growth After 4 Days 04/02/18 13:29 Peripheral/Iv Start Blood Culture - Preliminary No Growth After 4 Days 04/05/18 19:36 Peripheral/Iv Start Blood Culture - Preliminary Culture Initiated - Results Pending 04/05/18 19:40 Peripheral/Iv Start Blood Culture - Preliminary Culture Initiated - Results Pending History of Present Illness HPI: Kiera is a 62 yo female dismissed from [facility] on 03/26/2018 after an extensive hospital stay. She was admitted due to abdominal pain, fever, and diarrhea with possible bloody stool. Upon imaging, she was noted to have a very large lung mass. She underwent further evaluation by pulmonology and a bronchoscopy was completed. Biopsy was consistent with a poorly differentiated Squamous Cell carcinoma. Regarding her abdominal c/o, she was felt to have an acute descending colitis, and she received a lengthy course of broad spectrum antibiotic therapy. She was seen by the surgical team, and a GB workup was also done and felt to be non-significant. At the time of dismissal, Kiera was feeling well, and was dismissed to follow up with her PCP and Dr. Trujillo for further cancer recommendations. Today, she was seen by her PCP, Carmen, at [facility]. Patient reported significant fever, diarrhea, and worsened status. Due to these concerns, readmission has been requested for further evaluation and treatment. Patient is seen and examined. Family is at bedside, and helps with collateral information. They report that she began feeling worse about 5 days ago. Symptoms included fever of 102, several stools per day, and a mild increase in abdominal discomfort. They attempted to call PCP re: her change in symptoms, but there was a delay in being able to communicate with them. Two days ago, she developed a productive cough with thick green/yellow sputum. She has started Mucinex, which has helped to some extent. She does not use any inhaled medications at home, and reports that during her last stay, nebulized medications made her very shaky for around 2 hours and also caused nausea and vomiting. Again, she reports that her stools became looser again about 5 days ago. She reports about 4 stools per day- some are soft, and some "look like worms." Her normal is a stool Q 1-2 days. Some mild abdominal tenderness, but she reports that overall, this is improved from prior visit. She has been able to eat w/o vomiting and reports that she is hungry. She does have a dry mouth, and her tongue "turned white" a couple of days ago. No painful swallowing or dysphagia. She is very anxious and tearful about being back in the hospital. She was scheduled to see Dr. Trujillo today at 3:30, but reports that he is planning to come and see her here instead since she has to be readmitted. Objective Vital signs: Temperature 98.8 F 04/06/18 12:32 Pulse Rate 87 04/06/18 12:32 Respiratory Rate 16 04/06/18 12:32 Blood Pressure 106/57 04/06/18 12:32 Pulse Oximetry 97 04/06/18 12:32 Height/Weight/BMI: Height 5 ft 5 in Weight 59.9 kg Body Mass Index 22.0 - Constitutional Present: no acute distress - Routine HEENT Exam Head: Present: normocephalic, atraumatic Eye: Present: EOMI - Routine Cardiovascular Exam Present: RRR, no murmur - Routine Abdominal Exam Present: soft, non distended, non tender - Routine Extremities Exam Present: no edema. Absent: cyanosis, clubbing - Routine Skin Exam Present: intact, dry. Absent: erythema - Routine Neurological Exam Present: alert, oriented X3 - Routine Psychiatric Exam Present: normal affect, normal thought process Hospital Course This is a general summary of the patient's hospital course. For more details refer to the complete medical record. Pt was admitted due to worsening f/c, cough with sputum production. Pt reported she had these symptoms for the last couple of months but they had worsened. Pt was diagnosed with poorly differentiated squamous cell lung cancer on a previous hospital admission only a couple of weeks ago. Pt was to follow up with for oncology. Repeat CT scan during this hospitalization showed fluid pocket within the tumor so concern was for liqufactive necrosis of tumor vs. infection. Pt had luekocytosis, high crp, high fevers so abx coverage was expanded to vanc + levaquin. Pt has had 2 days of Vanc + levaquin, previously pt was on Unasyn for 2 days. Pt continues to have fevers and after discussions with oncology(--covering for Ronnie), pulmonology() and radiology () it was decided that draining the fluid to rule out infection is necessary before any cancer tx can begin. Radiology at [place] was unable to do this and as such pt was transferred to [facility] to get further care. The oncology team will follow pt at [facility]. Hospital course: Impression: 1. Recurrent colitis 2. R/O Sepsis 3. Large lung mass, NSCLC 4. Dehydration 5. Hypothyroidism 6. Anxiety 7. Acute bronchitis 8. Thrush Plan: 04/02/[address] Caballero Will obtain labs, blood cultures, UA, CXR and stool panel. Start Empiric Levaquin and Flagyl to cover both GI and pulm components. she is less tender than prior stay, so will get labs and then decide if we need to repeat the CT of the abdomen. Provide PRN pain medications, Hold off on antiemetics unless nausea becomes an issue due to multiple intolerances. IVF for dehydration and support. She is severely anxious- add PRN xanax. consider adding SSRI for ongoing tx. Will add Guaifenesin and Acapella as pt prefers to avoid inhaled meds, and she is not overtly wheezing. Consult Dr. Trujillo, as he would like to see her today to further establish plan of care for her cancer. SCDs for DVT pt. Add Nystatin suspension for likely thrush. Continue Synthroid. Confirmed Full Code 04/03/18 Febrile this morning at 101.2. Continue Unasyn for cavitary lesion/abscess to right upper lobe. WBC improved to 20.6; platelets improved to 734. CT scan was personally reviewed. Blood pressure has been low-normal; occasionally mildly tachycardic, associated with fever. Reduce the rate of normal saline to 100 ml/hr. Continue Nystatin for thrush. Dr. Trujillo following - workup for monoclonal gammopathy. Skeletal survey done today to look for lytic lesions - pending report. 04/04/18 White blood cell count is back up to 28.4. Platelet count has also increased to 781. Continue Unasyn, if white count doesn't respond or if fevers worsen, may need to consider expanding antibiotics. Blood cultures negative after 2 days. CRP is elevated at 142.5. Bone survey was negative for lytic or metastatic lesions. Continue IV fluids for now, normal saline at 50 ml per hour. Electrolytes are stable. 04/05/18 White blood cell count decreased to 22.2. Platelet count improving, 689. Procalcitonin was negative. Continue Unasyn, though may need to consider expanding antibiotics. Blood cultures negative after 2 days. CRP was elevated yesterday at 142.5. Consider consulting Dr. Molina - he treated Julia during her last hospital stay and performed bronch on 03/21/18 04/06/18 Discussed case with pulm, radiology and oncology. Decision was made to get sample from lung lesion to rule out infection before any cancer treatment can begin. Radiology is unable to do this at [place] so pt will be transferred to [facility] for further care. Oncology will continue to follow pt there. Time spent with patient: greater than 35 minutes Discharge Plan - Discharge Disposition Discharge Date: 04/06/18 Disposition: 02 To [facility] Acute Care *Condition: Stable Reason For Visit (Visit label in EMR): Sepsis,fever,lung cancer - Discharge Medications *Discharge Medications: New Vancomycin [Vancocin] 1,000 mg IV Q12H vial Piperacillin/Tazobactam [Zosyn 3.375 gm] 3.375 gm IV Q6H vial Continue Levothyroxine Tab [Synthroid] 112 mcg PO ACB No Action Acetaminophen [Tylenol] 1 tab PO Q6H PRN PRN Reason: Pain Mucinex 1 tab PO BID PRN PRN Reason: Cold Symptoms - Discharge Packet/Instructions *Diet: NA *Activity: NA *Pain Management/Treatment: NA *Wound Care: NA *Expected Signs/Symptoms: NA *Notify Physician if: NA *During Business Hours Contact: NA *After Business Hours Contact: NA *Pending Lab/Results: No Pending Lab - Referrals/Follow Up - Patient Handouts - Dismissal Complete Discharge Instructions are:: Complete Physician Narrative - Narrative Attestation Narrative: Date: 04/06/18 Time: 1845
[2018-04-06 16:09] VITALS: BP 111/61; PULSE 92; TEMP 99.3
== END 2018-04-06 16:48 | disposition short-term general hospital (02) | DRG 871 ==
LOC: SUATTDRO 12:05 → MED 12:05
PROVIDERS: ADMIT Internal Medicine; ATTEND Internal Medicine

== ENCOUNTER 2018-04-23 09:13 | Inpatient (IN) ==
[2018-04-23] MEDS ORDERED: MORPHINE SULFATE 4mg INJECTION IVP PRN (10:18)
[2018-04-23] MEDS ORDERED: VANCOMYCIN - PHARMACY CONSULT MC ONE (10:23)
[2018-04-23] MEDS ORDERED: CEFEPIME 1 GM in NS 100 ML IV SCH (10:30)
[2018-04-23] MEDS ORDERED: LEVOFLOXACIN PB 750 MG/150 ML BAG IV SCH (10:30)
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
[2018-04-23] MEDS: ALBUTEROL/IPRATROPIUM 2.5mg-0.5mg/3ml NEB AEROSOL SCH ×3 (11:21→18:54)
--- NOTE | 2018-04-23 11:32 | Pharmacy Consult-Antibiotics ---
Pharmacy Consult-Vancomycin - Consult Information VANCOMYCIN CONSULT: 62 yr old female 5'5" 59.5 KG recently diagnosed with non-squaous cell lung cancer. She had her first chemotherapy treatment on 04/20/18. Dx: Pneumonia/Fever Current Renal Fx: SCr = 0.7 mg/dl. Will give Vancomycin 1500 mg IV q24hrs. Will continue to monitor and adjust regimen to maintain therapeutic levels. Thank you. Victoria Delgado, PharmD
[2018-04-23] MEDS: ENOXAPARIN 30 MG/0.3 ML INJECTION SQ SCH (12:09)
[2018-04-23] MEDS: NS 1,000 ML IV SCH ×3 (12:23→23:20)
[2018-04-23] MEDS: LEVOFLOXACIN PB 750 MG/150 ML BAG IV SCH (12:24)
[2018-04-23] MEDS: CEFEPIME 1 GM in NS 100 ML IV SCH (14:17)
[2018-04-23] MEDS ORDERED: VANCOMYCIN 1,500 MG in NS 500 ML IV SCH (16:00)
[2018-04-23] MEDS ORDERED: HYDROCODONE/APAP 5mg/325mg TABLET PO PRN (18:50)
[2018-04-23] MEDS ORDERED: BISACODYL 10 MG SUPPOSITORY RECTALLY PRN (18:50)
[2018-04-23] MEDS: BUDESONIDE INH.SOLN 0.5mg/2ml NEB AEROSOL SCH (18:50)
[2018-04-23] MEDS: ACETAMINOPHEN 325 MG TABLET PO PRN (21:28)
[2018-04-23] MEDS: CLOTRIMAZOLE 10 MG TROCHE MM SCH (21:29)
[2018-04-23] MEDS: GABAPENTIN 300 MG CAPSULE PO SCH (21:29)
[2018-04-24] MEDS: CEFEPIME 1 GM in NS 100 ML IV SCH ×2 (01:03→18:11)
[2018-04-24] MEDS: ACETAMINOPHEN 325 MG TABLET PO PRN ×2 (04:24→16:28)
[2018-04-24] MEDS: LEVOTHYROXINE 112 MCG TABLET PO SCH (06:11)
[2018-04-24] MEDS: NS 1,000 ML IV SCH ×3 (06:21→18:42)
--- NOTE | 2018-04-24 07:20 | Pharmacy Consult-Antibiotics ---
Pharmacy Consult-Vancomycin - Laboratory Information WBC 24.0 T/MM3 (4.5-11.0) H 04/24/18 04:35 BUN 16.0 MG/DL (7-17) 04/24/18 04:35 Creatinine 0.6 mg/dL (0.7-1.2) L 04/24/18 04:35 Procalcitonin 0.21 NG/ML 04/23/18 10:27 VANCOMYCIN THERAPY: DAY W 62 yr old female 5'5" 59.5 KG recently diagnosed with non-squaous cell lung cancer. She had her first chemotherapy treatment on 04/20/18. Dx: Pneumonia/Fever Renal Fx: 04/23 SCr = 0.7 mg/dl. 04/24 SCr = 0.6 mg/dl Adjusting regimen to VANCOMYCIN 1500mg IV q12hrs. Will check trough tomorrow morning and adjust as needed. Thank you
[2018-04-24] MEDS: BUDESONIDE INH.SOLN 0.5mg/2ml NEB AEROSOL SCH ×2 (08:17→20:30)
[2018-04-24] MEDS: ALBUTEROL/IPRATROPIUM 2.5mg-0.5mg/3ml NEB AEROSOL SCH (08:18)
[2018-04-24] MEDS: VANCOMYCIN 1,500 MG in NS 500 ML IV SCH ×2 (08:42→22:16)
[2018-04-24] MEDS: CLOTRIMAZOLE 10 MG TROCHE MM SCH ×5 (09:19→20:53)
[2018-04-24] MEDS: ENOXAPARIN 30 MG/0.3 ML INJECTION SQ SCH (09:19)
--- NOTE | 2018-04-24 12:18 | Progress Note ---
- Date 04/24/18 Subjective: She is seen today in follow-up. She is known to this provider from prior hospitalization about 2 weeks ago. She remains very withdrawn, flat affect. Continues to not feel well. She reports persistent cough. Did have one episode of coughing up blood. Reports that "after my breathing test, I had to run to the bathroom". She endorses loose stool following her "breathing test". She denies using any albuterol however, as I know that she was intolerant to that previously. She remains fairly reluctant historian. Chart is reviewed for collateral information. Family member is at bedside, but does not contribute to conversation. Objective Vital signs: Temperature 98.0 F 04/24/18 08:00 Pulse Rate 93 04/24/18 08:00 Respiratory Rate 20 04/24/18 08:18 Blood Pressure 110/67 04/24/18 08:00 Pulse Oximetry 99 04/24/18 08:18 Height/Weight/BMI: Height 1.65 m Weight 60.3 kg Body Mass Index 21.8 Comments: Gen.: Patient is awake and alert. She appears depressed, flat affect, withdrawn. MAXIMUM TEMPERATURE 101.2 Head: Atraumatic, normocephalic. ENT: No focal abnormalities. Neck: Supple. Heart/vascular: S1, S2. Regular rate and rhythm. Mildly elevated heart rate. Telemetry: Sinus tach, rate 114 Pulmonary: Lungs are diminished throughout. Poor airflow left lung field. Coarse , nonproductive cough. She is not overtly short of air. Abdomen: Soft, nontender, nondistended. Sounds are normoactive. Extremities: No edema, no cyanosis or clubbing. Psych: Patient is awake and alert. She remains very depressed, flat affect. Poor eye contact. Reluctant historian. Results - Labs CBC & Chem 7: 04/24/18 04:35 04/24/18 04:35 Microbiology Results: Microbiology 04/23/18 10:34 Peripheral/Iv Start Blood Culture - Preliminary No Growth After 1 Day 04/23/18 10:29 Peripheral/Iv Start Blood Culture - Preliminary No Growth After 1 Day - Imaging and Cardiology Chest x-ray Additional comments: Comparison: Chest x-ray dated April 02, 2018 Findings: Large right upper lobe mass is again noted with postobstructive consolidation. No new areas of airspace disease. No pneumothorax or pleural effusion. Heart size and mediastinal contours are stable. Impression: Large right upper lobe mass with postobstructive atelectasis or pneumonia in the right upper lobe. . Assessment and Plan (1) Non-small cell cancer of right lung Current visit: No Status: Acute Assessment and Plan: Impression: Sepsis- 1. Pneumonia 2. Leukocytosis 3. Tachycardia- 97, Fever- Reported up to 102 in ER last night Pneumonia - suspect post obstructive Non Small cell lung cancer Chemotherapy- started 04/20/18 Neuropathic pain of hand and feet Mouth pain Thrush Hypothyroidism Depression Plan Patient remained febrile last night. Continue cefepime, Levaquin, Vanco. Obstructive pneumonia due to known lung cancer, immunocompromised status post chemotherapy. During her last hospitalization, there was concern for cavitation and necrosis of tumor. Consider repeating CT of the chest for further assessment. Given tachycardia, I will order a d-dimer. If this is elevated, consider CT angiogram of the chest. Patient did not tolerate albuterol during prior visits. Stop DuoNeb, continue Xopenex and Pulmicort. She has a bit tachycardic. Will add rate controlling medication. Again, assess d -dimer. She has been started on gabapentin for neuropathic pain of hands and feet. Significant concern for thrush, Mycelex, and when necessary swizzle solution for mouth pain. She continues to appear very depressed, and withdrawn. Could consider adding medication, specifically Remeron to help with mood and appetite. Repeat labs, imaging in the morning. DVT Prophylaxis: Lovenox Resuscitation Status: Full Code - Time spent with patient Time with patient PN: 25 minutes - Physician Narrative Physician: David Myrick MD Narrative: Date: 04/24/18 Time: 1822 Have independently interviewed and examined pt. Chart reviewed. Case discussed with my SECOND VP HR ASSESSMENT. Care plan developed with my supervision; agree with above. Doing fair today. Mouth slightly less sore with Mycelex/Swizzle-tolerates Mycelex better that Nystatin. Legs still numb-possibly slightly less so with Neurontin. Appetite okay. Breathing about the same. Reports hemoptysis. Tired and weak in general. Lungs: decreased bilaterally CV: tachy, regular AB: soft nt EXT: thin, no edema MSE; awake alert Gen: not looking as weak and sick as yesterday CTA: NO PE Plan: Will continue with antibiotic coverage. Add Culturelle. Continue Mycelex and Neurontin. Will decrease IVF to 75cc/hr. Monitor lab. Hospital Course Summary Disclaimer: The visit summary below is not to be considered part of the above Progress Note. Hospital Course: 04/23/18 Inpatient admission under the care of Dr. Cameron for sepsis and pneumonia. Chest Xray from last night reveled large right upper lobe mass with possible post-obstructive pneumonia. Obtain Venous lactate and draw blood cultures on admission. Repeat lactate as per sepsis protocol. Qsofa score- 0/3 at time of admission- continue to follow closely. Initiate IV Levaquin, Cefepime and Vancomycin for antibiotic coverage. Scheduled DuoNeb QID and Pulmicort BID. Oxygen as needed to maintain saturations. Monitor cardiac telemetry. Morphine and [place] available as needed for pain. With increasing neuropathic pain, will start Neurontin 300mg at night. Will continue with oral swizzle due to recent oral pain. Mycelex for thrush. Normal saline at 100ml/hr for gentle hydration SCDs and Lovenox 30 SQ daily for DVT prophylaxis. Wells score is 1= moderate risk for DVT due to active cancer. Recheck CBC and BMP tomorrow morning to follow blood counts, renal function and electrolytes. She does wish to be a full code and this orders written. At time of discharge medical care will return to primary care provider,Lake DRIVER at [facility]. 04/24/18 Patient remained febrile last night. Continue cefepime, Levaquin, Vanco. Obstructive pneumonia due to known lung cancer, immunocompromised status post chemotherapy. During her last hospitalization, there was concern for cavitation and necrosis of tumor. Consider repeating CT of the chest for further assessment. Given tachycardia, I will order a d-dimer. If this is elevated, consider CT angiogram of the chest. Patient did not tolerate albuterol during prior visits. Stop DuoNeb, continue Xopenex and Pulmicort. She has a bit tachycardic. Will add rate controlling medication. Again, assess d -dimer. She has been started on gabapentin for neuropathic pain of hands and feet. Significant concern for thrush, Mycelex, and when necessary swizzle solution for mouth pain. She continues to appear very depressed, and withdrawn. Could consider adding medication, specifically Remeron to help with mood and appetite. Repeat labs, imaging in the morning.
[2018-04-24] MEDS: LEVOFLOXACIN PB 750 MG/150 ML BAG IV SCH (12:25)
[2018-04-24] MEDS ORDERED: SALINE FLUSH 10ml SYRINGE ONE ×3 (14:09→17:02)
[2018-04-24] MEDS ORDERED: IOHEXOL 350mg/ml 75ml INJECTION ONE (14:09)
[2018-04-24] MEDS: GABAPENTIN 300 MG CAPSULE PO SCH (20:53)
[2018-04-25] MEDS: ACETAMINOPHEN 325 MG TABLET PO PRN ×4 (01:14→22:47)
[2018-04-25] MEDS: CEFEPIME 1 GM in NS 100 ML IV SCH ×2 (01:15→14:49)
[2018-04-25] MEDS: NS 1,000 ML IV SCH ×4 (01:21→20:41)
[2018-04-25] MEDS: LEVOTHYROXINE 112 MCG TABLET PO SCH (06:00)
--- NOTE | 2018-04-25 08:45 | Pharmacy Consult-Antibiotics ---
Pharmacy Consult-Vancomycin - Laboratory Information WBC 8.4 T/MM3 (4.5-11.0) D 04/25/18 05:26 BUN 15.0 MG/DL (7-17) 04/25/18 05:26 Creatinine 0.5 mg/dL (0.7-1.2) L 04/25/18 05:26 Procalcitonin 0.21 NG/ML 04/23/18 10:27 Vancomycin Trough 16.12 ug/mL (15-20) 04/25/18 05:26 VANCOMYCIN THERAPY: DAY 3 Trough = 16.12 but drawn 3 hours early. Extrapolated true trough = 12 mcg/ml Renal fx is stable. Will increase regimen to VANCOMYCIN 2gm IV q12hrs. This gives calculated peak/trough of 60 / 14.2 mcg/ml respectively. Will continue to follow and adjust regimen as needed. Thank you.
[2018-04-25] MEDS: CLOTRIMAZOLE 10 MG TROCHE MM SCH ×6 (08:59→20:30)
[2018-04-25] MEDS: LACTOBACILLUS (15B cfu) CAPSULE PO SCH ×3 (09:16→17:25)
[2018-04-25] MEDS: ENOXAPARIN 30 MG/0.3 ML INJECTION SQ SCH (09:17)
[2018-04-25] MEDS: BUDESONIDE INH.SOLN 0.5mg/2ml NEB AEROSOL SCH ×2 (09:45→19:28)
--- NOTE | 2018-04-25 09:59 | CT Scan Report ---
Indication: RULE OUT PE PROCEDURE: CT angio pulm emboli: Encounter: Initial Comparison: Chest CT dated April 02, 2018 Technique: Axial CT pulmonary angiographic phase images were performed through the chest after the administration of intravenous contrast. Coronal and Sagittal MIP reconstructed images were created and reviewed. Automated Exposure Control and Iterative Reconstruction dose reducing techniques were utilized. Contrast: Omnipaque 350 53.2 mL Findings: Pulmonary arteries: Exam is diagnostic to the interlobar pulmonary arterial level. No large or central pulmonary emboli. The segmental and subsegmental pulmonary arteries cannot be well evaluated due to contrast bolus. Other findings: Large right upper lobe mass is again noted with postobstructive atelectasis in the right upper lobe. The prior cavitary foci within the right upper lobe mass have resolved. No axillary adenopathy. Right hilar and paratracheal adenopathy is seen previously. Small pericardial effusion. Upper abdomen shows hepatomegaly but no acute findings. Impression: No large or central pulmonary embolus. There is a preliminary report by [employer] radiologic. .
--- NOTE | 2018-04-25 10:14 | Progress Note ---
- Date 04/25/18 Subjective: F/U: sepsis secondary to pneumonia, non-small cell lung cancer. Kiera is seen this morning while resting in bed with her daughter at the bedside. She seems frustrated and depressed on exam. She complains of an "upset stomach" but denies any nausea or vomiting as well as persistent numbness in her fingers and toes. When asked to clarify, she reports that her stomach is "upset" from having some many loose, diarrhea stools. She denies any blood or dark tarry stools stating, "they are just water". She also reports blood tinged sputum this morning with coughing but no current coughing or distress on exam. She denies any other complains or concerns. No chest pain , increased shortness of breath or dysuria. She continues to be febrile with occasional tachycardia which is improved with Tylenol. Labs today revealed resolution of leukocytosis (WBC 8.4) with 2% bands. Decrease in hemoglobin to 8.4 and slight improvement in thrombocytosis (Plt 500). Electrolytes stable. Blood cultures remain negative x 1 day. CTA revealed no PE with known large right upper lobe mass and postobstructive atelectasis in right upper lobe and hepatomegaly without acute findings. Objective Vital signs: Temperature 99.3 F 04/25/18 08:17 Pulse Rate 107 H 04/25/18 08:17 Respiratory Rate 16 04/25/18 09:45 Blood Pressure 112/57 04/25/18 08:17 Pulse Oximetry 94 04/25/18 09:45 Height/Weight/BMI: Height 5 ft 5 in Weight 133 lb 9.602 oz Body Mass Index 21.8 Comments: Resting in bed with daughter at bedside. - Constitutional Present: no acute distress, well nourished, well developed, thin, cooperative Comments: Frustrated and depressed. - Routine HEENT Exam Head: Present: normocephalic, atraumatic Eye: Present: PERRL. Absent: conjunctival icterus ENT: Present: mucous membranes moist - Routine Respiratory Exam Present: decreased breath sounds. Absent: respiratory distress, wheezes Comments: No cough or conversational dyspnea on exam. - Routine Cardiovascular Exam Present: RRR, S1, S2 - Routine Abdominal Exam Present: soft, normoactive bowel sounds, tenderness (generalized, mild). Absent : rebound, guarding - Routine Extremities Exam Present: no edema, full ROM, pulses intact - Routine Back/Spine/Pelvis Exam Back/Spine: Present: full ROM. Absent: paraspinal tenderness - Routine Musculoskeletal Exam Musculoskeletal: Present: no clubbing or cyanosis, moving extremities well - Routine Skin Exam Present: intact, dry, warm Comments: Febrile - Routine Neurological Exam Present: alert, oriented X3, moving all extremities, hearing grossly intact, normal speech - Routine Lymphatic Exam Lymphatic: Absent: lymphedema - Routine Psychiatric Exam Present: cooperative, depressed, agitated Results - Labs CBC & Chem 7: 04/25/18 05:26 04/25/18 05:26 Microbiology Results: Microbiology 04/23/18 10:34 Peripheral/Iv Start Blood Culture - Preliminary No Growth After 1 Day 04/23/18 10:29 Peripheral/Iv Start Blood Culture - Preliminary No Growth After 1 Day Assessment and Plan (1) Non-small cell cancer of right lung Current visit: No Status: Acute Assessment and Plan: Impression: Sepsis- 1. Pneumonia 2. Leukocytosis 3. Tachycardia- 97, Fever- Reported up to 102 in ER last night Pneumonia - suspect post obstructive Non Small cell lung cancer - Dr. Trujillo Chemotherapy- started 04/20/18 Neuropathic pain of hand and feet Mouth pain Thrush Hypothyroidism Depression Plan - 04/25/18 Patient remained febrile last night. Continue cefepime, Levaquin, Vanco for coverage of obstructive pneumonia due to known lung cancer, immunocompromised status post chemotherapy. During her last hospitalization, there was concern for cavitation and necrosis of tumor - CTA showed resolution of cavitation and necrosis. CTA revealed no PE with known large right upper lobe mass and postobstructive atelectasis in right upper lobe and hepatomegaly without acute findings. Patient did not tolerate albuterol during prior visits. Continue Xopenex and Pulmicort. Avoid DuoNeb. She has been a bit tachycardic. Suspect secondary to fever. Will check TSH and continue to monitor closely. Blood pressure stable. Leukocytosis resolved. Gabapentin QHS started on 04/23 for neuropathic pain of hands and feet. Consider increasing to BID or TID for additional symptom control. Will check B12. Significant concern for thrush, Mycelex, and when necessary swizzle solution for mouth pain. She continues to appear very depressed, and withdrawn. Could consider adding medication, specifically Remeron to help with mood and appetite. Consider psych consult. Increased watery, diarrhea stools. Given recent chemotherapy as well as multiple antibiotics, will check stool culture and c.diff. Culturelle added 04/24. Questran added 04/25. Recheck labs in AM including CBC, CMP given hepatomegaly on CT and Mg. DVT Prophylaxis: SCD's Resuscitation Status: Full Code - Time spent with patient Time with patient PN: 30 minutes - Physician Narrative Physician: David Myrick MD Narrative: Date: 04/25/18 Time: 1535 Have independently interviewed and examined pt. Chart reviewed. Case discussed with my PA. Care plan developed with my supervision; agree with above. Overall about the same-still having fevers/chills. Stomach gets upset with oral intake-notes loose stools post eating. Some nausea. Breathing fair-some cough and discomfort with breathing. Weak in general. Hands/feet burning, but less so in legs. Took shower this am which helped her to feel better in general. Lungs: decreased bilaterally. No distress CV: regular AB: soft nt +BS EXT: thin, no edema Plan: Continue with antimicrobial coverage. Continue fluids for support. Increase Neurontin for neuropathic pain. Stool showing C diff toxin - will start oral Vancomycin. Questran prn loose stool. Will consult PT/OT tomorrow to help improve functional status. Monitor lab. Hospital Course Summary Disclaimer: The visit summary below is not to be considered part of the above Progress Note. Hospital Course: 04/23/18 Inpatient admission under the care of Dr. Myrick for sepsis and pneumonia. Chest X-ray from last night reveled large right upper lobe mass with possible post-obstructive pneumonia. Obtain Venous lactate and draw blood cultures on admission. Repeat lactate as per sepsis protocol. Qsofa score- 0/3 at time of admission- continue to follow closely. Initiate IV Levaquin, Cefepime and Vancomycin for antibiotic coverage. Scheduled DuoNeb QID and Pulmicort BID. Oxygen as needed to maintain saturations. Monitor cardiac telemetry. Morphine and [place] available as needed for pain. With increasing neuropathic pain, will start Neurontin 300mg at night. Will continue with oral swizzle due to recent oral pain. Mycelex for thrush. Normal saline at 100ml/hr for gentle hydration SCDs and Lovenox 30 SQ daily for DVT prophylaxis. Wells score is 1 = moderate risk for DVT due to active cancer. Recheck CBC and BMP tomorrow morning to follow blood counts, renal function and electrolytes. She does wish to be a full code and this orders written. At time of discharge medical care will return to primary care provider, Carmen Marrero APRN at [facility]. 04/24/18 Patient remained febrile last night. Continue cefepime, Levaquin, Vancomycin. Obstructive pneumonia due to known lung cancer, immunocompromised status post chemotherapy. During her last hospitalization, there was concern for cavitation and necrosis of tumor. CT PE protocol performed. No PE. Large right upper lobe mass and postobstructive atelectasis in right upper lobe seen. Patient did not tolerate albuterol during prior visits. Stop DuoNeb, continue Xopenex and Pulmicort. She has been started on gabapentin for neuropathic pain of hands and feet. Significant concern for thrush, Mycelex, and when necessary swizzle solution for mouth pain. She continues to appear very depressed, and withdrawn. Could consider adding medication, specifically Remeron to help with mood and appetite. 04/25/18 Continue cefepime, Levaquin, Vancomycin for coverage of obstructive pneumonia due to known lung cancer, immunocompromised status post chemotherapy. Continue Xopenex and Pulmicort. Avoid DuoNeb. Patient did not tolerate albuterol during prior visits. She has been a bit tachycardic. Suspect secondary to fever. Blood pressure stable. Leukocytosis resolved. TSH showing elevation. Will increase Synthroid to 0.125mg daily. Increase Neurontin to 300mg TID to help neuropathic pain. Will check B12. Increased watery, diarrhea stools. Given recent chemotherapy as well as multiple antibiotics, will check stool culture and C.Diff. Questran added. Stool positive for C diff - will start Oral vancomycin. Consult PT/OT in am to help improve functional status.
--- NOTE | 2018-04-25 10:26 | XRay Report ---
Indication: Lung CA PROCEDURE: XR chest 1V: Encounter: Initial Comparison: April 22, 2018 Findings: Large right upper lobe lung mass is again seen and appears slightly smaller, now measuring 7.3 cm in transverse diameter compared to 7.9 cm. Continued postobstructive atelectasis in the right upper lobe. Remaining lung garza are is a clear. Mild emphysema. Heart size and mediastinal contours are stable Impression: Apparent slight decrease in size of the right upper lobe mass. .
[2018-04-25] MEDS: LEVOFLOXACIN PB 750 MG/150 ML BAG IV SCH (12:06)
[2018-04-25] MEDS: GABAPENTIN 300 MG CAPSULE PO SCH ×2 (14:56→20:30)
[2018-04-25] MEDS: CHOLESTYRAMINE LIGHT 4 G PACKET PO PRN (15:26)
[2018-04-25] MEDS: VANCOMYCIN 250mg/5ml ORAL LIQ PO SCH ×2 (17:25→20:32)
[2018-04-25] MEDS: DiphenhydrAMINE 50 MG/ML INJECTION IVP PRN (23:17)
[2018-04-26] MEDS: CEFEPIME 1 GM in NS 100 ML IV SCH ×2 (02:01→15:02)
[2018-04-26] MEDS: VANCOMYCIN 250mg/5ml ORAL LIQ PO SCH ×4 (02:01→21:17)
[2018-04-26] MEDS: ACETAMINOPHEN 325 MG TABLET PO PRN ×3 (05:20→21:35)
[2018-04-26] MEDS: LEVOTHYROXINE 125 MCG TABLET PO SCH (05:36)
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
--- NOTE | 2018-04-26 08:53 | Progress Note ---
- Date 04/26/18 Subjective: Kiera is seen this morning in follow up. She is eating breakfast and reports difficulty with holding silverware due to hand "numbness/pain". She also reports same pain in bilateral feet. She denies having chest pain or feeling short of breath. Appetite is good overall. Afebrile. Objective Vital signs: Temperature 98.5 F 04/26/18 08:00 Pulse Rate 92 04/26/18 08:00 Respiratory Rate 24 04/26/18 08:00 Blood Pressure 109/62 04/26/18 08:00 Pulse Oximetry 94 04/26/18 08:00 Height/Weight/BMI: Height 1.65 m Weight 60.6 kg Body Mass Index 21.8 - Constitutional Present: no acute distress, well nourished, well developed - Routine HEENT Exam Eye: Present: EOMI ENT: Present: mucous membranes moist, dentition normal - Routine Respiratory Exam Present: CTA bilaterally. Absent: wheezes - Routine Cardiovascular Exam Present: RRR, S1, S2. Absent: murmur - Routine Abdominal Exam Present: soft, normoactive bowel sounds, non distended. Absent: tenderness - Routine Extremities Exam Present: pulses intact - Routine Skin Exam Present: intact, dry, warm - Routine Neurological Exam Present: alert, oriented X3, CN II-XII intact, moving all extremities - Routine Lymphatic Exam Lymphatic: Absent: adenopathy - Routine Psychiatric Exam Present: normal affect, normal thought process, cooperative Results - Labs CBC & Chem 7: 04/26/18 04:34 04/26/18 04:34 Microbiology Results: Microbiology 04/23/18 10:34 Peripheral/Iv Start Blood Culture - Preliminary No Growth After 2 Days 04/23/18 10:29 Peripheral/Iv Start Blood Culture - Preliminary No Growth After 2 Days Assessment and Plan (1) Non-small cell cancer of right lung Current visit: No Status: Acute Assessment and Plan: Impression: Sepsis - Leukocytosis, Tachycardia, Fever -- suspect pulmonary source Pneumonia - suspect post obstructive C diff diarrhea Non Small cell lung cancer - Dr. Trujillo Chemotherapy- started 04/20/18 Neuropathic pain of hand and feet Mouth pain Thrush Hypothyroidism with elevated TSH, Synthroid dose increased during hospitalization Depression Gen debility Plan Continue cefepime, Levaquin, Vanco for coverage of obstructive pneumonia due to known lung cancer, immunocompromised status post chemotherapy. She is on oral Vanco for treatment of C-Diff. Questran as needed for loose stools, and Culturelle for merry replacement Continue Xopenex and Pulmicort. Avoid DuoNeb. Gabapentin increased to 300 TID to help with hand and foot pain Significant concern for thrush, Mycelex, and when necessary swizzle solution for mouth pain. Leukocytosis resolved. Hgb stable at 8.[address] Trujillo to follow Case discussed with Dr Elen Myrick Will stop IV antibiotics. Uncertain how much post-obstructive pneumonia present - discharge summary from [facility] with ID feeling fever and leukocytosis secondary to necrotic tumor rather than infectious etiology. With C Diff, continued antibiotics would slow treatment. DVT Prophylaxis: SCD's, Lovenox Resuscitation Status: Full Code - Time spent with patient Time with patient PN: 25 minutes - Physician Narrative Physician: David Myrick MD Narrative: Date: 04/26/18 Time: 1720 Have independently interviewed & examined pt. Chart reviewed. Case discuss with CM & my RESEARCH AND DEVELOPMENT RESEARCHER. Care plan developed with my supervision; agree with above. Rough. Hand and feet numb. Worked with therapy, but had difficulty being up due to numbness and instability. Hard to use walker due to numbness in hands. Stools slowing with Questran-pt starting to feel more constipated (harder to expel stool). Some nausea. Appetite with decreased. Breathing stable. Notes temp elevation and chills off and on. Lungs: decreased, no distress CV: regular AB: soft nt EXT: thin MSE: awake alert Plan: Will stop IV antibiotics. Uncertain how much post-obstructive pneumonia present - discharge summary from [facility] with ID feeling fever and leukocytosis secondary to necrotic tumor rather than infectious etiology. With C Diff, continued antibiotics would slow treatment. [place] to help pains. Therapy to help functional status. Continue Neurontin for neuropathic discomfort. Will continue with IVF. Monitor lab. Hospital Course Summary Disclaimer: The visit summary below is not to be considered part of the above Progress Note. Hospital Course: 04/23/18 Inpatient admission under the care of Dr. Myrick for sepsis and pneumonia. Chest X-ray from last night reveled large right upper lobe mass with possible post-obstructive pneumonia. Obtain Venous lactate and draw blood cultures on admission. Repeat lactate as per sepsis protocol. Qsofa score- 0/3 at time of admission- continue to follow closely. Initiate IV Levaquin, Cefepime and Vancomycin for antibiotic coverage. Scheduled DuoNeb QID and Pulmicort BID. Oxygen as needed to maintain saturations. Monitor cardiac telemetry. Morphine and [place] available as needed for pain. With increasing neuropathic pain, will start Neurontin 300mg at night. Will continue with oral swizzle due to recent oral pain. Mycelex for thrush. Normal saline at 100ml/hr for gentle hydration SCDs and Lovenox 30 SQ daily for DVT prophylaxis. Wells score is 1 = moderate risk for DVT due to active cancer. Recheck CBC and BMP tomorrow morning to follow blood counts, renal function and electrolytes. She does wish to be a full code and this orders written. At time of discharge medical care will return to primary care provider, Carmen Marrero APRN at [facility]. 04/24/18 Patient remained febrile last night. Continue cefepime, Levaquin, Vancomycin. Obstructive pneumonia due to known lung cancer, immunocompromised status post chemotherapy. During her last hospitalization, there was concern for cavitation and necrosis of tumor. CT PE protocol performed. No PE. Large right upper lobe mass and postobstructive atelectasis in right upper lobe seen. Patient did not tolerate albuterol during prior visits. Stop DuoNeb, continue Xopenex and Pulmicort. She has been started on gabapentin for neuropathic pain of hands and feet. Significant concern for thrush, Mycelex, and when necessary swizzle solution for mouth pain. She continues to appear very depressed, and withdrawn. Could consider adding medication, specifically Remeron to help with mood and appetite. 04/25/18 Continue cefepime, Levaquin, Vancomycin for coverage of obstructive pneumonia due to known lung cancer, immunocompromised status post chemotherapy. Continue Xopenex and Pulmicort. Avoid DuoNeb. Patient did not tolerate albuterol during prior visits. She has been a bit tachycardic. Suspect secondary to fever. Blood pressure stable. Leukocytosis resolved. TSH showing elevation. Will increase Synthroid to 0.125mg daily. Increase Neurontin to 300mg TID to help neuropathic pain. Will check B12. Increased watery, diarrhea stools. Given recent chemotherapy as well as multiple antibiotics, will check stool culture and C.Diff. Questran added. Stool positive for C diff - will start Oral vancomycin. Questran prn loose stool. Consult PT/OT in am to help improve functional status. 04/26/18 Will stop IV antibiotics. Uncertain how much post-obstructive pneumonia present. Discharge summary from [facility] with ID feeling fever and leukocytosis secondary to necrotic tumor rather than infectious etiology. With C Diff, continued antibiotics would slow treatment. Continue oral Vancomycin for treatment of C-Diff. Questran as needed for loose stools, and Culturelle for merry replacement Continue Xopenex and Pulmicort. Avoid DuoNeb. Gabapentin increased to 300 TID to help with hand and foot pain. [place] added for pain control. Significant concern for thrush, Mycelex, and when necessary swizzle solution for mouth pain. PT/OT initiated to help improve functional status. Leukocytosis resolved - GCSF given by Dr Trujillo. Hgb stable at 8.[address] Trujillo to follow
[2018-04-26] MEDS: BUDESONIDE INH.SOLN 0.5mg/2ml NEB AEROSOL SCH ×2 (09:25→20:40)
[2018-04-26] MEDS: GABAPENTIN 300 MG CAPSULE PO SCH ×3 (09:38→21:17)
[2018-04-26] MEDS: CLOTRIMAZOLE 10 MG TROCHE MM SCH ×5 (09:39→21:17)
[2018-04-26] MEDS: LACTOBACILLUS (15B cfu) CAPSULE PO SCH ×3 (09:39→18:37)
[2018-04-26] MEDS: CHOLESTYRAMINE LIGHT 4 G PACKET PO PRN (11:40)
[2018-04-26] MEDS: ENOXAPARIN 30 MG/0.3 ML INJECTION SQ SCH (12:58)
[2018-04-26] MEDS: LEVOFLOXACIN PB 750 MG/150 ML BAG IV SCH (13:00)
[2018-04-26] MEDS ORDERED: HYDROCODONE/APAP 7.5 MG/325 MG TABLET PO PRN (13:18)
[2018-04-26] MEDS: NS 1,000 ML IV SCH (17:22)
[2018-04-26 17:24] VITALS: BMI 22.2
[2018-04-26] MEDS ORDERED: DIPHENHYDRAMINE 2% CREAM 28gm TOP PRN (18:28)
[2018-04-26] MEDS: DiphenhydrAMINE 50 MG/ML INJECTION IVP PRN (21:35)
[2018-04-27] MEDS: VANCOMYCIN 250mg/5ml ORAL LIQ PO SCH ×4 (03:29→22:15)
[2018-04-27] MEDS: DiphenhydrAMINE 50 MG/ML INJECTION IVP PRN ×2 (03:45→22:16)
[2018-04-27] MEDS: ACETAMINOPHEN 325 MG TABLET PO PRN ×3 (03:47→22:16)
[2018-04-27] MEDS: LEVOTHYROXINE 125 MCG TABLET PO SCH (06:41)
[2018-04-27] MEDS: NS 1,000 ML IV SCH (06:49)
[2018-04-27] MEDS: BUDESONIDE INH.SOLN 0.5mg/2ml NEB AEROSOL SCH ×2 (07:20→20:59)
[2018-04-27] MEDS: CLOTRIMAZOLE 10 MG TROCHE MM SCH ×5 (08:49→22:15)
[2018-04-27] MEDS: LACTOBACILLUS (15B cfu) CAPSULE PO SCH ×3 (08:50→17:25)
[2018-04-27] MEDS: ENOXAPARIN 30 MG/0.3 ML INJECTION SQ SCH (08:50)
[2018-04-27] MEDS: GABAPENTIN 300 MG CAPSULE PO SCH ×2 (08:50→14:55)
--- NOTE | 2018-04-27 10:01 | Progress Note ---
- Date 04/27/18 Subjective: Julia is feeling down, pissed off, depressed from being in the hospital so much lately. She also has painful numbness/tingling to her hands and feet -- so much that she has to look down at her feet when she walks to make sure that her feet are hitting the floor. She states the blisters/sores in her mouth are improving and the solution has been helpful. She is trying to eat enough and has a container of Activia on her bedside table. She denies feeling short of breath but has a mild cough that is occasionally productive of green/yellow colored "slime". She has abdominal cramps associated with diarrhea but denies nausea. Also notes a diffuse erythematous rash that started a couple days ago, after starting oral vanco. Objective Vital signs: Temperature 97.4 F 04/27/18 07:43 Pulse Rate 118 H 04/27/18 07:43 Respiratory Rate 18 04/27/18 07:43 Blood Pressure 124/62 04/27/18 07:43 Pulse Oximetry 98 04/27/18 07:43 Height/Weight/BMI: Height 1.65 m Weight 60.6 kg Body Mass Index 22.2 - Constitutional Present: well nourished, well developed, thin - Routine HEENT Exam Head: Present: normocephalic Eye: Present: PERRL. Absent: conjunctival icterus, scleral injection ENT: Present: mucous membranes moist. Absent: oropharynx clear (thrush reportedly clearing) - Routine Respiratory Exam Present: CTA bilaterally - Routine Cardiovascular Exam Present: RRR, S1, S2 - Routine Abdominal Exam Present: soft, normoactive bowel sounds, non distended, non tender - Routine Extremities Exam Present: no edema, pulses intact - Routine Musculoskeletal Exam Musculoskeletal: Present: moving extremities well - Routine Skin Exam Present: intact, dry, warm, rash (diffuse erythematous macular rash predominantly to trunk/back but also on extremities, proximal > distal ?drug rxn ) - Routine Neurological Exam Present: alert, oriented X3, CN II-XII intact, moving all extremities, vision grossly intact, hearing grossly intact, normal speech. Absent: sensory deficit , motor deficit, altered mental status, facial asymmetry - Routine Psychiatric Exam Present: normal affect, normal thought process, cooperative Results - Labs CBC & Chem 7: 04/27/18 04:07 04/27/18 04:08 Microbiology Results: Microbiology 04/23/18 10:34 Peripheral/Iv Start Blood Culture - Preliminary No Growth After 3 Days 04/23/18 10:29 Peripheral/Iv Start Blood Culture - Preliminary No Growth After 3 Days Assessment and Plan (1) Non-small cell cancer of right lung Current visit: No Status: Acute Assessment and Plan: Impression: Sepsis - Leukocytosis, Tachycardia, Fever -- suspect pulmonary source Pneumonia - suspect post obstructive C diff diarrhea ? drug rash Hypokalemia (Not POA) Non Small cell lung cancer - Dr. Trujillo Chemotherapy- started 04/20/18 Neuropathic pain of hand and feet Mouth pain Thrush Hypothyroidism with elevated TSH, Synthroid dose increased during hospitalization Depression Gen debility Plan Abx dc'd yesterday. Erythematous diffuse rash ? drug rxn. Red man syndrome not typically assoc. with oral vanco - benadryl prn & monitor. Given that vanco administered orally is primarily limited to GI tract a drug rash to vanco is less likely compared to IV abx that were previously given. Hgb trending down, currently 7.6. Could be dilutional -- DC IVF since oral intake has been stable. Check stool for occult blood, though given hx of C. diff she may very well have some degree of mucosal irritation contributing to some GI blood loss. G-CSF given yesterday per onc. Discussed depression - pt refuses to take an antidepressant. Neuropathy - consider neuro consult/outpt referral. ? side effect of chemo? DVT Prophylaxis: SCD's Resuscitation Status: Full Code - Time spent with patient Time with patient PN: 25 minutes - Physician Narrative Physician: David Myrick MD Narrative: Date: 04/27/18 Time: 1700 Have independently interviewed and examined pt. Chart reviewed. Case discussed with my BUSINESS UNIT MANAGER. Care plan developed with my supervision; agree with above. About the same. Most bothersome problem is the neuropathy-makes it very hard to walk and use her hands. Very uncomfortable. Very frustrated because of this. Stools starting to slow-had 2 bowel movements today. Not as frequent, but still very urgent when needs to go. Appetite waxes and wanes. Breathing stable-not SOA or congested. Still some cough. Temp elevations decreasing. Lungs: decreased bilaterally. No distress on RA. CV: regular AB: soft nt MSE: awake alert Plan: Continue oral vanco - prn Questran if stools more frequent. Encourage therapy and activities to help strength. Blood counts decreasing-suspect secondary to chemo. Need to monitor. IVF stopped. Hospital Course Summary Disclaimer: The visit summary below is not to be considered part of the above Progress Note. Hospital Course: 04/23/18 Inpatient admission under the care of Dr. Myrick for sepsis and pneumonia. Chest X-ray from last night reveled large right upper lobe mass with possible post-obstructive pneumonia. Obtain Venous lactate and draw blood cultures on admission. Repeat lactate as per sepsis protocol. Qsofa score- 0/3 at time of admission- continue to follow closely. Initiate IV Levaquin, Cefepime and Vancomycin for antibiotic coverage. Scheduled DuoNeb QID and Pulmicort BID. Oxygen as needed to maintain saturations. Monitor cardiac telemetry. Morphine and [place] available as needed for pain. With increasing neuropathic pain, will start Neurontin 300mg at night. Will continue with oral swizzle due to recent oral pain. Mycelex for thrush. Normal saline at 100ml/hr for gentle hydration SCDs and Lovenox 30 SQ daily for DVT prophylaxis. Wells score is 1 = moderate risk for DVT due to active cancer. Recheck CBC and BMP tomorrow morning to follow blood counts, renal function and electrolytes. She does wish to be a full code and this orders written. At time of discharge medical care will return to primary care provider, Carmen Marrero APRN at [facility]. 04/24/18 Patient remained febrile last night. Continue cefepime, Levaquin, Vancomycin. Obstructive pneumonia due to known lung cancer, immunocompromised status post chemotherapy. During her last hospitalization, there was concern for cavitation and necrosis of tumor. CT PE protocol performed. No PE. Large right upper lobe mass and postobstructive atelectasis in right upper lobe seen. Patient did not tolerate albuterol during prior visits. Stop DuoNeb, continue Xopenex and Pulmicort. She has been started on gabapentin for neuropathic pain of hands and feet. Significant concern for thrush, Mycelex, and when necessary swizzle solution for mouth pain. She continues to appear very depressed, and withdrawn. Could consider adding medication, specifically Remeron to help with mood and appetite. 04/25/18 Continue cefepime, Levaquin, Vancomycin for coverage of obstructive pneumonia due to known lung cancer, immunocompromised status post chemotherapy. Continue Xopenex and Pulmicort. Avoid DuoNeb. Patient did not tolerate albuterol during prior visits. She has been a bit tachycardic. Suspect secondary to fever. Blood pressure stable. Leukocytosis resolved. TSH showing elevation. Will increase Synthroid to 0.125mg daily. Increase Neurontin to 300mg TID to help neuropathic pain. Will check B12. Increased watery, diarrhea stools. Given recent chemotherapy as well as multiple antibiotics, will check stool culture and C.Diff. Questran added. Stool positive for C diff - will start Oral vancomycin. Questran prn loose stool. Consult PT/OT in am to help improve functional status. 04/26/18 Will stop IV antibiotics. Uncertain how much post-obstructive pneumonia present. Discharge summary from [facility] with ID feeling fever and leukocytosis secondary to necrotic tumor rather than infectious etiology. With C Diff, continued antibiotics would slow treatment. Continue oral Vancomycin for treatment of C-Diff. Questran as needed for loose stools, and Culturelle for mrery replacement Continue Xopenex and Pulmicort. Avoid DuoNeb. Gabapentin increased to 300 TID to help with hand and foot pain. [place] added for pain control. Significant concern for thrush, Mycelex, and when necessary swizzle solution for mouth pain. PT/OT initiated to help improve functional status. Leukocytosis resolved - GCSF given by Dr Trujillo. Hgb stable at 8.[address] Trujillo to follow. 04/27/18 Abx dc'd yesterday. Erythematous diffuse rash ? drug rxn. Red man syndrome not typically assoc. with oral vanco - Benadryl prn & monitor. Given that vanco administered orally is primarily limited to GI tract a drug rash to vanco is less likely compared to IV abx that were previously given. Hgb trending down, currently 7.6. Could be dilutional -- DC IVF since oral intake has been stable. Check stool for occult blood, though given hx of C. diff she may very well have some degree of mucosal irritation contributing to some GI blood loss. G-CSF given yesterday per onc. Discussed depression - pt refuses to take an antidepressant. Neuropathy - consider neuro consult/outpt referral. ? side effect of chemo?
--- NOTE | 2018-04-27 12:57 | Progress Note ---
<Inna Glover - Last Filed: 04/27/18 17:01> Oncology Subjective Reclining in hospital bed, alone in room. Alert/oriented. Denies fever/chills. Cough/shortness of air with exertion, unchanged/denies worsening symptoms. Reports one loose stool today, cramping has since improved slightly. Discouraged with persistent neuropathy, states "hasn't got any better" General: No fever, no night sweats Eyes: No redness, no pain, no diplopia ENT: No mouth sores, no trouble swallowing Cardiac: No chest pain no palpitations Pulmonary: + cough, + shortness of breath w/ exertion, no wheezing Abdomen: No pain, no nausea vomiting, no diarrhea or constipation : No urgency, frequency, dysuria, or hematuria Musculoskeletal: No arthritis, no myalgias Neurological: No headaches, no focal weakness Skin: + rash/ + itching. no sores Psychiatric: No anxiety, no depression Exam Vital signs: Temperature 97.4 F 04/27/18 07:43 Pulse Rate 103 H 04/27/18 08:00 Respiratory Rate 18 04/27/18 07:43 Blood Pressure 124/62 04/27/18 07:43 Pulse Oximetry 98 04/27/18 07:43 - Constitutional no acute distress, well nourished, well developed - Routine HEENT Exam Head: Present: normocephalic Eye: Present: EOMI ENT: Present: mucous membranes moist - Routine Neck Exam Present: supple. Absent: lymphadenopathy - Routine Respiratory Exam Present: decreased breath sounds. Absent: wheezes, crackles - Routine Cardiovascular Exam Present: RRR. Absent: no murmur - Routine Abdominal Exam Present: soft, normoactive bowel sounds, non tender - Routine Extremities Exam Present: no edema, full ROM - Routine Skin Exam Present: intact, warm, rash (diffuse macular rash abdomen/upper back. Appears less erythematous today.) - Routine Neurological Exam Present: alert, oriented X3 - Routine Psychiatric Exam Present: normal affect, cooperative Oncology Results - Labs CBC & Chem 7: 04/27/18 04:07 04/27/18 04:08 Labs: Short CBC 04/27/18 Range/Units 04:07 WBC 4.3 L (4.5-11.0) T/MM3 Hgb 7.6 L (12-16) GM/DL Hct 24.8 L (36-46) % Plt Count 356 (130-400) T/MM3 [facility] 04/27/18 04:08 Sodium 139 Potassium 3.5 L D Chloride 104 Carbon Dioxide 23 BUN 11.0 Creatinine 0.5 L Glucose 106 Calcium 8.5 Assessment and Plan Assessment and Plan: 1. 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 S/P neoadjuvant chemotherapy on 04/20 now with dropping counts. G CSF/Granix 300 mcg given X1 on 04/26/18. 04/26/18 WBC is 6.3, 04/27/18 WBC is 4.3. 2. C Diff Diarrhea. 3. 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 Documented with normal B 12 of 651 but elevated MMA of 48. 5. Post obstructive pneumonia. CXR from 04/25 shows improvement. 6. Neuropathy Plan Continue supportive care. Dr. Myrick states discontinued antibiotics;likely elevated temperature related to tumor necrosis and concern with continued antibiotics with C. difficile infection. Will increase Neurontin to 400 mg 3 times a day. Active listened. Encouraged patient take one day at a time - Time Spent With Patient Total time spent is greater than 50% in coordination of care (as documented) at patient's floor/unit and/or counseling patient: less than 15 minutes <Deangelo Trujillo - Last Filed: 04/27/18 19:16> Exam Vital signs: Temperature 98.3 F 04/27/18 15:57 Pulse Rate 95 04/27/18 16:00 Respiratory Rate 18 04/27/18 15:57 Blood Pressure 95/52 04/27/18 15:57 Pulse Oximetry 96 04/27/18 15:57 Oncology Results - Labs CBC & Chem 7: 04/27/18 04:07 04/27/18 04:08 Labs: Short CBC 04/27/18 Range/Units 04:07 WBC 4.3 L (4.5-11.0) T/MM3 Hgb 7.6 L (12-16) GM/DL Hct 24.8 L (36-46) % Plt Count 356 (130-400) T/MM3 [facility] 04/27/18 04:08 Sodium 139 Potassium 3.5 L D Chloride 104 Carbon Dioxide 23 BUN 11.0 Creatinine 0.5 L Glucose 106 Calcium 8.5 Assessment and Plan Assessment and Plan: Patient examined, chart reviewed, I participated the development of the plan of care of this patient with Ida Glover. Agree with documentation of Ida Glover. She started B 12 1 week ago. We'll continue B 12. This could be contributing to the neuropathy. Taxol is probably the most likely etiology of the neuropathy. C. difficile diarrhea is better. Maculopapular rash secondary to drug currently improving. Will continue B 12 and G-CSF today. Anemia is most likely secondary to chemotherapy versus blood loss. Follow-up labs tomorrow Laboratory Tests 04/24/18 04/25/18 04/26/18 04:35 05:26 04:34 WBC Hgb Plt Count Neut # (Auto) Eos # (Auto) Neutrophils # (Manual) 23.3 H 7.7 5.4 Potassium Carbon Dioxide Creatinine 04/27/18 04/27/18 04:07 04:08 WBC 4.3 L Hgb 7.6 L Plt Count 356 Neut # (Auto) 3.4 Eos # (Auto) 0.1 Neutrophils # (Manual) Potassium 3.5 L D Carbon Dioxide 23 Creatinine 0.5 L - Time Spent With Patient Total time spent is greater than 50% in coordination of care (as documented) at patient's floor/unit and/or counseling patient: 25 - 35 minutes
[2018-04-27] MEDS ORDERED: CYANOCOBALAMIN (B-12) 1,000mcg/ml INJECTION IM ONE (20:00)
[2018-04-27] MEDS: GABAPENTIN 400 MG CAPSULE PO SCH (22:15)
[2018-04-28] MEDS: DiphenhydrAMINE 25 MG CAPSULE PO PRN ×2 (00:51→22:32)
[2018-04-28] MEDS: VANCOMYCIN 250mg/5ml ORAL LIQ PO SCH ×4 (04:33→22:33)
[2018-04-28] MEDS: LEVOTHYROXINE 125 MCG TABLET PO SCH (06:36)
[2018-04-28] MEDS: BUDESONIDE INH.SOLN 0.5mg/2ml NEB AEROSOL SCH ×2 (08:20→20:08)
[2018-04-28] MEDS: CLOTRIMAZOLE 10 MG TROCHE MM SCH ×5 (09:26→22:32)
[2018-04-28] MEDS: ENOXAPARIN 30 MG/0.3 ML INJECTION SQ SCH (09:26)
[2018-04-28] MEDS: LACTOBACILLUS (15B cfu) CAPSULE PO SCH ×3 (09:27→18:18)
[2018-04-28] MEDS: GABAPENTIN 400 MG CAPSULE PO SCH ×3 (09:27→22:32)
--- NOTE | 2018-04-28 09:55 | Progress Note ---
- Date 04/28/18 Subjective: Kiera is seen today in follow up. She reports that her hands and feet pain and tingling is finally feeling better today. She complains of feeling cold all over. Denies dyspnea or coughing, Denies chest pain. Appetite is fair. She continues to have loose stools approx 3 a day, however it is formed. She does not like the Questran powder to decrease stools. Noted to have fever 101.5 last evening. Vital signs stable. Objective Vital signs: Temperature 99.1 F 04/28/18 08:00 Pulse Rate 103 H 04/28/18 08:00 Respiratory Rate 24 04/28/18 08:20 Blood Pressure 111/58 04/28/18 08:00 Pulse Oximetry 99 04/28/18 08:20 Height/Weight/BMI: Height 1.65 m Weight 61.2 kg Body Mass Index 22.2 - Constitutional Present: no acute distress, well nourished, well developed - Routine HEENT Exam Eye: Present: EOMI ENT: Present: mucous membranes moist, dentition normal - Routine Respiratory Exam Present: CTA bilaterally. Absent: wheezes - Routine Cardiovascular Exam Present: RRR, S1, S2. Absent: murmur - Routine Abdominal Exam Present: soft, normoactive bowel sounds, non distended. Absent: tenderness - Routine Extremities Exam Present: full ROM, pulses intact - Routine Skin Exam Present: intact, dry, warm - Routine Neurological Exam Present: alert, oriented X3, CN II-XII intact, moving all extremities - Routine Lymphatic Exam Lymphatic: Absent: adenopathy - Routine Psychiatric Exam Present: normal affect, normal thought process, cooperative Results - Labs CBC & Chem 7: 04/28/18 03:59 04/28/18 03:59 Microbiology Results: Microbiology 04/23/18 10:34 Peripheral/Iv Start Blood Culture - Preliminary No Growth After 4 Days 04/23/18 10:29 Peripheral/Iv Start Blood Culture - Preliminary No Growth After 4 Days Assessment and Plan (1) Non-small cell cancer of right lung Current visit: No Status: Acute Assessment and Plan: Impression: Sepsis - Leukocytosis, Tachycardia, Fever -- suspect pulmonary source Pneumonia - suspect post obstructive C diff diarrhea ? drug rash Hypokalemia (Not POA) Non Small cell lung cancer - Dr. Trujillo Chemotherapy- started 04/20/18 Neuropathic pain of hand and feet Mouth pain Thrush Hypothyroidism with elevated TSH, Synthroid dose increased during hospitalization Depression Gen debility Plan Continues on PO Vanco for treatment of C-diff. Overall stools are slowing and are not formed Continue Questran as needed. Culturelle TID Hgb remains decreased at 7.5. Continues on Granix. Oncology is following patient Neuropathy appears to be improving on Neurontin TID Mycelex Christian 5X/day for PO thrush Will have nursing staff ambulate QID - Physician Narrative Physician: Winter Caballero MD Narrative: Date: 04/28/18 Time: 1550 I have independently evaluated and examined this patient. I reviewed the chart, the patient's history, and the ZOOLOGY TEACHER/PA's documented findings as above. We discussed and formulated the assessment and plan as above with additions as below: Mrs. Gibson was frustrated when seen with persistent numbness in her hands and legs; she indicated this was new during hospitalization although admission note reports painful/numb extremities present on admission. Patient believes rashes unchanged and describes ongoing diarrhea as recorded above. Chronically ill-appearing female, respirations nonlabored Diffuse macular faintly erythematous rash, no ulcerations or urticaria present Abdomen soft, nontender, nondistended +1 edema 4 extremities Oral vancomycin initiated /-continue History suggests chemotherapy induced peripheral neuropathy although I cannot completely exclude Levaquin contributing to neuropathic symptoms. CTA images and report reviewed-post obstructive atelectasis described, there is very little lung space distal to the mass. Diarrhea reported / and presenting fever/leukocytosis may have been due to C. difficile. Hospital Course Summary Disclaimer: The visit summary below is not to be considered part of the above Progress Note. Hospital Course: 04/23/18 Inpatient admission under the care of Dr. Myrick for sepsis and pneumonia. Chest X-ray from last night reveled large right upper lobe mass with possible post-obstructive pneumonia. Obtain Venous lactate and draw blood cultures on admission. Repeat lactate as per sepsis protocol. Qsofa score- 0/3 at time of admission- continue to follow closely. Initiate IV Levaquin, Cefepime and Vancomycin for antibiotic coverage. Scheduled DuoNeb QID and Pulmicort BID. Oxygen as needed to maintain saturations. Monitor cardiac telemetry. Morphine and Woodgate available as needed for pain. With increasing neuropathic pain, will start Neurontin 300mg at night. Will continue with oral swizzle due to recent oral pain. Mycelex for thrush. Normal saline at 100ml/hr for gentle hydration SCDs and Lovenox 30 SQ daily for DVT prophylaxis. Wells score is 1 = moderate risk for DVT due to active cancer. Recheck CBC and BMP tomorrow morning to follow blood counts, renal function and electrolytes. She does wish to be a full code and this orders written. At time of discharge medical care will return to primary care provider, Carmen Marrero APRN at [facility]. 04/24/18 Patient remained febrile last night. Continue cefepime, Levaquin, Vancomycin. Obstructive pneumonia due to known lung cancer, immunocompromised status post chemotherapy. During her last hospitalization, there was concern for cavitation and necrosis of tumor. CT PE protocol performed. No PE. Large right upper lobe mass and postobstructive atelectasis in right upper lobe seen. Patient did not tolerate albuterol during prior visits. Stop DuoNeb, continue Xopenex and Pulmicort. She has been started on gabapentin for neuropathic pain of hands and feet. Significant concern for thrush, Mycelex, and when necessary swizzle solution for mouth pain. She continues to appear very depressed, and withdrawn. Could consider adding medication, specifically Remeron to help with mood and appetite. 04/25/18 Continue cefepime, Levaquin, Vancomycin for coverage of obstructive pneumonia due to known lung cancer, immunocompromised status post chemotherapy. Continue Xopenex and Pulmicort. Avoid DuoNeb. Patient did not tolerate albuterol during prior visits. She has been a bit tachycardic. Suspect secondary to fever. Blood pressure stable. Leukocytosis resolved. TSH showing elevation. Will increase Synthroid to 0.125mg daily. Increase Neurontin to 300mg TID to help neuropathic pain. Will check B12. Increased watery, diarrhea stools. Given recent chemotherapy as well as multiple antibiotics, will check stool culture and C.Diff. Questran added. Stool positive for C diff - will start Oral vancomycin. Questran prn loose stool. Consult PT/OT in am to help improve functional status. 04/26/18 Will stop IV antibiotics. Uncertain how much post-obstructive pneumonia present. Discharge summary from [facility] with ID feeling fever and leukocytosis secondary to necrotic tumor rather than infectious etiology. With C Diff, continued antibiotics would slow treatment. Continue oral Vancomycin for treatment of C-Diff. Questran as needed for loose stools, and Culturelle for merry replacement Continue Xopenex and Pulmicort. Avoid DuoNeb. Gabapentin increased to 300 TID to help with hand and foot pain. Woodgate added for pain control. Significant concern for thrush, Mycelex, and when necessary swizzle solution for mouth pain. PT/OT initiated to help improve functional status. Leukocytosis resolved - GCSF given by Dr Trujillo. Hgb stable at 8.[address] Trujillo to follow. 04/27/18 Abx dc'd yesterday. Erythematous diffuse rash ? drug rxn. Red man syndrome not typically assoc. with oral vanco - Benadryl prn & monitor. Given that vanco administered orally is primarily limited to GI tract a drug rash to vanco is less likely compared to IV abx that were previously given. Hgb trending down, currently 7.6. Could be dilutional -- DC IVF since oral intake has been stable. Check stool for occult blood, though given hx of C. diff she may very well have some degree of mucosal irritation contributing to some GI blood loss. G-CSF given yesterday per onc. Discussed depression - pt refuses to take an antidepressant. Neuropathy - consider neuro consult/outpt referral. ? side effect of chemo? 04/28/18 Continues on PO Vanco for treatment of C-diff. Overall stools are slowing and are not formed Continue Questran as needed. Culturelle TID Hgb remains decreased at 7.5. Continues on Granix. Oncology is following patient Neuropathy appears to be improving on Neurontin TID Mycelex Christian 5X/day for PO thrush Will have nursing staff ambulate QID
--- NOTE | 2018-04-28 20:17 | Progress Note ---
Oncology Subjective Patient continues to be anxious and frustrated over being in the hospital. She is concerned about the rash. She is concerned about her neuropathy. Diarrhea is somewhat better with large bowel movement earlier today. It is still soft but not runny. Cough is somewhat better. Exam Vital signs: Temperature 98.1 F 04/28/18 15:14 Pulse Rate 102 H 04/28/18 16:00 Respiratory Rate 20 04/28/18 15:14 Blood Pressure 108/60 04/28/18 15:14 Pulse Oximetry 96 04/28/18 15:14 - Constitutional no acute distress, thin - Routine HEENT Exam Head: Present: normocephalic Eye: Present: EOMI, PERRL ENT: Present: mucous membranes moist Throat: normal inspection, R peritonsillar mass - Routine Neck Exam Present: supple. Absent: lymphadenopathy - Routine Respiratory Exam Present: CTA bilaterally. Absent: wheezes - Routine Cardiovascular Exam Present: RRR, no murmur - Routine Abdominal Exam Present: soft, normoactive bowel sounds, non distended, non tender, distended ( mild) - Routine Extremities Exam Present: no edema. Absent: cyanosis, clubbing - Routine Skin Exam Present: dry, warm - Routine Neurological Exam Present: alert, oriented X3, CN II-XII intact - Routine Psychiatric Exam Present: anxious Oncology Results - Labs CBC & Chem 7: 04/28/18 03:59 04/28/18 03:59 Labs: Short CBC 04/28/18 Range/Units 03:59 WBC 2.9 L (4.5-11.0) T/MM3 Hgb 7.5 L (12-16) GM/DL Hct 24.1 L (36-46) % Plt Count 368 (130-400) T/MM3 [facility] 04/28/18 03:59 Sodium 139 Potassium 3.8 Chloride 103 Carbon Dioxide 24 BUN 12.0 Creatinine 0.5 L Glucose 97 Calcium 8.7 Laboratory Tests 04/28/18 03:59 WBC 2.9 L Hgb 7.5 L Hct 24.1 L Plt Count 368 Assessment and Plan Assessment and Plan: Non small cell lung cancer Locally advanced with CT suggesting mediastinal disease. On Neoadjuvant chemotherapy with Taxol and Carboplatin. Currently day 9 of chemotherapy cycle with toxicity of neuropathy and leukopenia. On G CSF Post obstuctive pneumonia with fever and night sweats. WBC decreasing. On G CSF. No on systemic antibiotics. 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 Negative intrinsic factor antibody. Glossitis is better. 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 Sensitive palms and soles. Improving on gabapentin Chemotherapy induced neutropeinia WBC 2.9 with ANC of 1.3. On G CSF Anemia. Chemotherapy related. Hgb of 7.5 gradually declining. Plan continue present supportive care. Continue G CSF Consider changing to Flagyl from oral vancomycin. Cases J. 2008; 1: 111. Published online 2007Jul 10. doi: 10.1186/7817-0341-2-111 PMCID: [id number] PMID: [id number] An elderly woman with 'Red Man Syndrome' in association with oral vancomycin therapy: a case report - Time Spent With Patient Total time spent is greater than 50% in coordination of care (as documented) at patient's floor/unit and/or counseling patient:
[2018-04-29] MEDS: VANCOMYCIN 250mg/5ml ORAL LIQ PO SCH ×4 (04:24→21:20)
[2018-04-29] MEDS: LEVOTHYROXINE 125 MCG TABLET PO SCH (06:48)
[2018-04-29] MEDS: BUDESONIDE INH.SOLN 0.5mg/2ml NEB AEROSOL SCH ×2 (09:30→21:04)
--- NOTE | 2018-04-29 10:21 | Progress Note ---
<Inna Glover L - Last Filed: 04/29/18 16:00> Oncology Subjective Reclining in hospital bed. Alert and oriented. Continues with rash/itching. Disease with intermittent cough/shortness of air, denies worsening symptoms. States diarrhea and abdominal cramping has resolved. No concerns. General: No fever, no night sweats Eyes: No redness, no pain, no diplopia ENT: No mouth sores, no trouble swallowing Cardiac: No chest pain no palpitations Pulmonary: + cough, + shortness of breath with exertion, no wheezing Abdomen: No pain, no nausea vomiting, no diarrhea or constipation : No urgency, frequency, dysuria, or hematuria Musculoskeletal: No arthritis, no myalgias Neurological: No headaches, no focal weakness Skin: + rash + itching Psychiatric: No anxiety, no depression Exam Vital signs: Temperature 97.7 F 04/29/18 07:00 Pulse Rate 98 04/29/18 07:00 Respiratory Rate 18 04/29/18 09:30 Blood Pressure 94/57 04/29/18 07:00 Pulse Oximetry 98 04/29/18 09:30 Narrative: Generic Name Dose Route Start Last Admin Trade Name Freq PRN Reason Stop Dose Admin Acetaminophen 325 - 650 mg 04/23/18 21:25 04/27/18 22:16 Tylenol PO 650 mg Q5H PRN Administration Discomfort Hydrocodone Bitart/Acetaminophen 1 tab 04/23/18 18:50 Chelsea 5/325 PO Q4H PRN Pain Hydrocodone Bitart/Acetaminophen 1 tab 04/26/18 13:18 [place] 7.5/325 PO Q4H PRN Pain Bisacodyl 10 mg 04/23/18 18:50 Dulcolax RECTALLY DAILY PRN Constipation Budesonide 0.5 mg 04/23/18 19:00 04/29/18 09:30 Pulmicort Inhalation AEROSOL 0.5 mg RTBID GERMAN Administration Cholestyramine Resin 4 g 04/25/18 10:26 04/26/18 11:40 Questran Light PO 4 g Q6H PRN Administration Diarrhea Clotrimazole 10 mg 04/23/18 21:00 04/29/18 12:01 Mycelex Christian MM 10 mg 5XD GERMAN Administration Diphenhydramine HCl 25 mg 04/25/18 22:57 04/27/18 22:16 Benadryl IVP 25 mg Q6HR PRN Administration Itching Diphenhydramine HCl 25 mg 04/27/18 23:27 04/28/18 22:32 Benadryl PO 25 mg Q6H PRN Administration Itching Enoxaparin Sodium 30 mg 04/23/18 10:30 04/29/18 10:46 Lovenox SQ 30 mg DAILY GERMAN Administration Gabapentin 400 mg 04/27/18 21:00 04/29/18 10:36 Neurontin PO 400 mg TID GERMAN Administration Lactobacillus Acidophilus 2 cap 04/25/18 08:00 04/29/18 12:01 Culturelle PO 2 cap TIDWM GERMAN Administration Levalbuterol HCl 1.25 mg 04/23/18 13:40 Xopenex 1.25mg/3ml AEROSOL RTTID PRN Levothyroxine Sodium 125 mcg 04/26/18 06:30 04/29/18 06:48 Synthroid PO 125 mcg ACB GERMAN Administration Magnesium Hydroxide 30 ml 04/23/18 18:50 Mom PO DAILY PRN Constipation Morphine Sulfate 2 mg 04/23/18 10:18 04/23/18 12:43 Morphine Sulfate Inj IVP 2 mg Q3H PRN Administration Pain Pharmacy Profile Note 5 ml 04/23/18 13:00 04/29/18 13:59 Lidocaine/Maalox/Benadryl Soln SSW 5 ml QID GERMAN Administration Vancomycin HCl 125 mg 04/25/18 17:15 04/29/18 10:37 Vancomycin Oral Liq PO 125 mg Q6HR [facility] Administration Zinc Acetate/Diphenhydramine 1 applic 04/26/18 18:28 04/26/18 18:38 Benadryl Extra Strength Cream TOP 1 applic TID PRN Administration Itching Discontinued Medications Generic Name Dose Route Start Last Admin Trade Name Freq PRN Reason Stop Dose Admin Albuterol/Ipratropium 3 ml 04/23/18 13:00 04/24/18 08:18 Duoneb AEROSOL Not Given QID [facility] Cyanocobalamin 1,000 mcg 04/27/18 20:00 04/27/18 22:14 Vit. B-12 IM 04/27/18 20:01 1,000 mcg ONE TIME ONE Administration Gabapentin 300 mg 04/23/18 21:00 04/24/18 20:53 Neurontin PO 300 mg HS GERMAN Administration Gabapentin 300 mg 04/25/18 15:00 04/27/18 14:55 Neurontin PO 300 mg TID GERMAN Administration Sodium Chloride 1,000 mls @ 100 mls/hr 04/23/18 10:30 04/25/18 00:20 Normal Saline IV Infused .Q10H [facility] Infusion Levofloxacin/Dextrose 750 mg in 150 mls @ 100 mls/hr 04/23/18 10:30 04/23/18 19:49 Levaquin 750 Mg Premix IV Not Given Q24H [facility]ER[facility] Cefepime HCl 1 gm/ Sodium 100 mls @ 200 mls/hr 04/23/18 10:30 04/23/18 19:49 Chloride IV Not Given Q12H [facility] Levofloxacin/Dextrose 750 mg in 150 mls @ 100 mls/hr 04/23/18 12:00 04/26/18 14:30 Levaquin 750 Mg Premix IV Infused Q24H [facility] Infusion Cefepime HCl 1 gm/ Sodium 100 mls @ 200 mls/hr 04/23/18 14:00 04/26/18 15:32 Chloride IV Infused Q12H [facility] Infusion Vancomycin HCl 1,500 mg/ 500 mls @ 250 mls/hr 04/23/18 16:00 04/23/18 18:30 Sodium Chloride IV Infused Q24H [facility] Infusion Vancomycin HCl 1,500 mg/ 500 mls @ 250 mls/hr 04/24/18 09:00 04/25/18 00:20 Sodium Chloride IV Infused Q12HR [facility] Infusion Sodium Chloride 1,000 mls @ 75 mls/hr 04/24/18 18:30 04/27/18 10:39 Normal Saline IV Infused .[id number] [facility] Infusion Vancomycin HCl 2,000 mg/ 500 mls @ 250 mls/hr 04/25/18 09:00 04/26/18 12:09 Sodium Chloride IV Infused Q12HR [facility] Infusion Levothyroxine Sodium 112 mcg 04/24/18 06:30 04/25/18 06:00 Synthroid PO 112 mcg ACB GERMAN Administration Potassium Chloride 20 meq 04/27/18 10:13 04/27/18 10:55 K-Dur 20 Meq Tablet PO 04/27/18 10:14 20 meq O ONE Administration Tbo-Filgrastim 300 mcg 04/26/18 08:00 04/26/18 09:40 Granix SQ 04/26/18 08:01 300 mcg Q24H ONE Administration Tbo-Filgrastim 300 mcg 04/27/18 19:10 04/27/18 22:13 Granix SQ 04/27/18 19:11 300 mcg Q24H ONE Administration Tbo-Filgrastim 300 mcg 04/28/18 05:45 Granix SQ Q24H [facility] Tbo-Filgrastim 300 mcg 04/28/18 09:00 04/29/18 10:36 Granix SQ 300 mcg DAILY [facility]ERMAN Administration Vancomycin HCl 1 each 04/23/18 10:23 04/23/18 12:10 Pharmacy Consult - Vancomycin 04/23/18 10:24 Not Given O ONE - Constitutional no acute distress, well nourished, well developed - Routine HEENT Exam Head: Present: normocephalic Eye: Present: EOMI ENT: Present: mucous membranes moist - Routine Neck Exam Present: supple. Absent: lymphadenopathy - Routine Respiratory Exam Present: decreased breath sounds. Absent: wheezes, crackles - Routine Cardiovascular Exam Present: RRR, no murmur - Routine Abdominal Exam Present: soft, non tender. Absent: mass - Routine Extremities Exam Present: no edema, full ROM - Routine Back/Spine/Pelvis Exam Back/Spine: Absent: vertebral tenderness - Routine Skin Exam Present: dry, rash - Routine Neurological Exam Present: alert, oriented X3 - Routine Psychiatric Exam Present: normal affect, cooperative Oncology Results - Labs CBC & Chem 7: 04/29/18 04:23 04/29/18 04:23 Labs: Short CBC 04/29/18 Range/Units 04:23 WBC 5.1 D (4.5-11.0) T/MM3 Hgb 8.0 L (12-16) GM/DL Hct 25.7 L (36-46) % Plt Count 376 (130-400) T/MM3 [facility] 04/29/18 04:23 Sodium 136 Potassium 4.1 Chloride 98 Carbon Dioxide 27 BUN 11.0 Creatinine 0.6 L Glucose 101 Calcium 9.3 Assessment and Plan Assessment and Plan: Non small cell lung cancer Locally advanced with CT suggesting mediastinal disease. On Neoadjuvant chemotherapy with Taxol and Carboplatin. Chemotherapy- induced toxicity of neuropathy and leukopenia. On G CSF Post obstuctive pneumonia with fever and night sweats. WBC decreasing. On G CSF. 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 Negative intrinsic factor antibody. Glossitis is better. 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 Sensitive palms and soles. Improving on gabapentin Chemotherapy induced neutropeinia WBC 2.9 with ANC of 1.3 on 04/28/18, W BC 5.1 with ANC of 1.6 on 04/29/18. On G CSF Anemia. Chemotherapy related. Hgb of 8.0, slowly improving. C. difficile diarrhea, resolving. Plan Continue supportive care. Encouraged walking/ daily activity, reinforced nutritious intake, be sure is getting adequate fluids. - Time Spent With Patient Total time spent is greater than 50% in coordination of care (as documented) at patient's floor/unit and/or counseling patient: less than 15 minutes <Deangelo Trujillo - Last Filed: 04/29/18 18:00> Exam Vital signs: Temperature 98.4 F 04/29/18 15:00 Pulse Rate 110 H 04/29/18 15:00 Respiratory Rate 16 04/29/18 15:00 Blood Pressure 110/61 04/29/18 15:00 Pulse Oximetry 99 04/29/18 15:00 Oncology Results - Labs CBC & Chem 7: 04/29/18 04:23 04/29/18 04:23 Labs: Short CBC 04/29/18 Range/Units 04:23 WBC 5.1 D (4.5-11.0) T/MM3 Hgb 8.0 L (12-16) GM/DL Hct 25.7 L (36-46) % Plt Count 376 (130-400) T/MM3 [facility] 04/29/18 04:23 Sodium 136 Potassium 4.1 Chloride 98 Carbon Dioxide 27 BUN 11.0 Creatinine 0.6 L Glucose 101 Calcium 9.3 Assessment and Plan Assessment and Plan: She examined, chart reviewed, WBC is improving. ANC is 1600 today agree with documentation by Ida Glover. The main difficulty is present time as a neutropenia and neuropathy. Currently ambulating in the room 3 today. We'll continue G-CSF and follow tomorrow. I participated in the films of the plan of care of this patient. Laboratory Tests 04/28/18 04/29/18 03:59 04:23 WBC 2.9 L 5.1 D Hgb 7.5 L 8.0 L Plt Count 368 376 Neutrophils # (Manual) 1.3 L 1.6 L - Time Spent With Patient Total time spent is greater than 50% in coordination of care (as documented) at patient's floor/unit and/or counseling patient:
[2018-04-29] MEDS: CLOTRIMAZOLE 10 MG TROCHE MM SCH ×5 (10:35→21:20)
[2018-04-29] MEDS: LACTOBACILLUS (15B cfu) CAPSULE PO SCH ×3 (10:35→17:50)
[2018-04-29] MEDS: GABAPENTIN 400 MG CAPSULE PO SCH ×3 (10:36→21:20)
[2018-04-29] MEDS: ENOXAPARIN 30 MG/0.3 ML INJECTION SQ SCH (10:46)
--- NOTE | 2018-04-29 14:35 | Progress Note ---
- Date 04/29/18 Subjective: Kiera is seen this afternoon. She continues to be quite flat and depressed affect. She continues to complain of hand and feet neuropathy and pain although is slightly improved over the past few days. Loose stools are improving and less frequent and somewhat formed. She denies feeling short of breath or having chest pain. Appetite is good as she is eating 100% of meals. Objective Vital signs: Temperature 97.7 F 04/29/18 07:00 Pulse Rate 94 04/29/18 08:00 Respiratory Rate 18 04/29/18 09:30 Blood Pressure 94/57 04/29/18 07:00 Pulse Oximetry 98 04/29/18 09:30 Height/Weight/BMI: Height 1.65 m Weight 61.3 kg Body Mass Index 22.2 - Constitutional Present: no acute distress, well nourished, well developed - Routine HEENT Exam Eye: Present: EOMI ENT: Present: mucous membranes moist, dentition normal - Routine Respiratory Exam Present: CTA bilaterally. Absent: wheezes - Routine Cardiovascular Exam Present: RRR, S1, S2. Absent: murmur - Routine Abdominal Exam Present: soft, normoactive bowel sounds, non distended. Absent: tenderness - Routine Extremities Exam Present: normal capillary refill - Routine Skin Exam Present: intact, dry, warm - Routine Neurological Exam Present: alert, oriented X3, CN II-XII intact, moving all extremities - Routine Lymphatic Exam Lymphatic: Absent: adenopathy - Routine Psychiatric Exam Present: normal affect, cooperative Results - Labs CBC & Chem 7: 04/29/18 04:23 04/29/18 04:23 Microbiology Results: Microbiology 04/23/18 10:34 Peripheral/Iv Start Blood Culture - Final No Growth After 5 Days 04/23/18 10:29 Peripheral/Iv Start Blood Culture - Final No Growth After 5 Days Assessment and Plan (1) Non-small cell cancer of right lung Current visit: No Status: Acute Assessment and Plan: Impression: Sepsis - Leukocytosis, Tachycardia, Fever -- suspect pulmonary source Pneumonia - suspect post obstructive C diff diarrhea ? drug rash Hypokalemia (Not POA) Non Small cell lung cancer - Dr. Trujillo Chemotherapy- started 04/20/18 Neuropathic pain of hand and feet Mouth pain Thrush Hypothyroidism with elevated TSH, Synthroid dose increased during hospitalization (0.112-->0.125) Depression Gen debility Plan Continues on PO Vanco for treatment of C-diff. Hgb continues to remain stable at 8.0. Will discontinue Granix as blood counts have improved Overall peripheral neuropathy is improving on Neurontin Mycelex Christian 5X/day for PO thrush Encourage ambulation Hopeful for discharge in the near future DVT Prophylaxis: SCD's Resuscitation Status: Full Code - Physician Narrative Physician: Winter Caballero MD Narrative: Date: 04/29/18 Time: 1620 I have independently evaluated and examined this patient. I reviewed the chart, the patient's history, and the TOWEL [employer]ORTER/PA's documented findings as above. We discussed and formulated the assessment and plan as above with additions as below: Mrs. Gibosn reports that rash is fading but she still having difficulty walking due to numbness in her feet. She was able to ambulate 60 feet with physical therapy today. Stools are partially formed and frequency is decreasing. NAD, flat affect, drowsy Respirations nonlabored, abdomen soft, nontender, nondistended. Telemetry reviewed-sinus rhythm/sinus tachycardia without ectopy ANC just over 3000. Magnesium 1.6 Progressive improvement, rash clearly fading and was consistent with drug rash rather than red man syndrome. Continue oral vancomycin. Unclear if cefepime or Levaquin triggered rash although cefepime seems more likely. With improvement in blood counts anticipate discharge in next 1-2 days. Hospital Course Summary Disclaimer: The visit summary below is not to be considered part of the above Progress Note. Hospital Course: 04/23/18 Inpatient admission under the care of Dr. Myrick for sepsis and pneumonia. Chest X-ray from last night reveled large right upper lobe mass with possible post-obstructive pneumonia. Obtain Venous lactate and draw blood cultures on admission. Repeat lactate as per sepsis protocol. Qsofa score- 0/3 at time of admission- continue to follow closely. Initiate IV Levaquin, Cefepime and Vancomycin for antibiotic coverage. Scheduled DuoNeb QID and Pulmicort BID. Oxygen as needed to maintain saturations. Monitor cardiac telemetry. Morphine and Shawnee available as needed for pain. With increasing neuropathic pain, will start Neurontin 300mg at night. Will continue with oral swizzle due to recent oral pain. Mycelex for thrush. Normal saline at 100ml/hr for gentle hydration SCDs and Lovenox 30 SQ daily for DVT prophylaxis. Wells score is 1 = moderate risk for DVT due to active cancer. Recheck CBC and BMP tomorrow morning to follow blood counts, renal function and electrolytes. She does wish to be a full code and this orders written. At time of discharge medical care will return to primary care provider, Carmen Marrero APRN at [facility]. 04/24/18 Patient remained febrile last night. Continue cefepime, Levaquin, Vancomycin. Obstructive pneumonia due to known lung cancer, immunocompromised status post chemotherapy. During her last hospitalization, there was concern for cavitation and necrosis of tumor. CT PE protocol performed. No PE. Large right upper lobe mass and postobstructive atelectasis in right upper lobe seen. Patient did not tolerate albuterol during prior visits. Stop DuoNeb, continue Xopenex and Pulmicort. She has been started on gabapentin for neuropathic pain of hands and feet. Significant concern for thrush, Mycelex, and when necessary swizzle solution for mouth pain. She continues to appear very depressed, and withdrawn. Could consider adding medication, specifically Remeron to help with mood and appetite. 04/25/18 Continue cefepime, Levaquin, Vancomycin for coverage of obstructive pneumonia due to known lung cancer, immunocompromised status post chemotherapy. Continue Xopenex and Pulmicort. Avoid DuoNeb. Patient did not tolerate albuterol during prior visits. She has been a bit tachycardic. Suspect secondary to fever. Blood pressure stable. Leukocytosis resolved. TSH showing elevation. Will increase Synthroid to 0.125mg daily. Increase Neurontin to 300mg TID to help neuropathic pain. Will check B12. Increased watery, diarrhea stools. Given recent chemotherapy as well as multiple antibiotics, will check stool culture and C.Diff. Questran added. Stool positive for C diff - will start Oral vancomycin. Questran prn loose stool. Consult PT/OT in am to help improve functional status. 04/26/18 Will stop IV antibiotics. Uncertain how much post-obstructive pneumonia present. Discharge summary from [facility] with ID feeling fever and leukocytosis secondary to necrotic tumor rather than infectious etiology. With C Diff, continued antibiotics would slow treatment. Continue oral Vancomycin for treatment of C-Diff. Questran as needed for loose stools, and Culturelle for merry replacement Continue Xopenex and Pulmicort. Avoid DuoNeb. Gabapentin increased to 300 TID to help with hand and foot pain. Shawnee added for pain control. Significant concern for thrush, Mycelex, and when necessary swizzle solution for mouth pain. PT/OT initiated to help improve functional status. Leukocytosis resolved - GCSF given by Dr Trujillo. Hgb stable at 8.[address] Trujillo to follow. 04/27/18 Abx dc'd yesterday. Erythematous diffuse rash ? drug rxn. Red man syndrome not typically assoc. with oral vanco - Benadryl prn & monitor. Given that vanco administered orally is primarily limited to GI tract a drug rash to vanco is less likely compared to IV abx that were previously given. Hgb trending down, currently 7.6. Could be dilutional -- DC IVF since oral intake has been stable. Check stool for occult blood, though given hx of C. diff she may very well have some degree of mucosal irritation contributing to some GI blood loss. G-CSF given yesterday per onc. Discussed depression - pt refuses to take an antidepressant. Neuropathy - consider neuro consult/outpt referral. ? side effect of chemo? 04/28/18 Continues on PO Vanco for treatment of C-diff. Overall stools are slowing and are not formed Continue Questran as needed. Culturelle TID Hgb remains decreased at 7.5. Continues on Granix. Oncology is following patient Neuropathy appears to be improving on Neurontin TID Mycelex Christian 5X/day for PO thrush Will have nursing staff ambulate QID 04/29 Continues on PO Vanco for treatment of C-diff. Hgb continues to remain stable at 8.0. Will discontinue Granix. Overall peripheral neuropathy is improving on Neurontin. Mycelex Christian 5X/day for PO thrush
[2018-04-29] MEDS: DiphenhydrAMINE 25 MG CAPSULE PO PRN (19:07)
[2018-04-29] MEDS: ACETAMINOPHEN 325 MG TABLET PO PRN (20:19)
[2018-04-30] MEDS: VANCOMYCIN 250mg/5ml ORAL LIQ PO SCH ×2 (04:13→08:28)
[2018-04-30] MEDS: LEVOTHYROXINE 125 MCG TABLET PO SCH (06:12)
[2018-04-30] MEDS: BUDESONIDE INH.SOLN 0.5mg/2ml NEB AEROSOL SCH ×2 (06:50→19:30)
[2018-04-30 07:36] VITALS: RESP 18
[2018-04-30] MEDS: LACTOBACILLUS (15B cfu) CAPSULE PO SCH ×3 (08:28→17:12)
[2018-04-30] MEDS: GABAPENTIN 400 MG CAPSULE PO SCH ×2 (08:28→15:12)
[2018-04-30] MEDS: CLOTRIMAZOLE 10 MG TROCHE MM SCH ×4 (08:28→17:12)
[2018-04-30] MEDS: ENOXAPARIN 30 MG/0.3 ML INJECTION SQ SCH (08:28)
[2018-04-30] MEDS ORDERED: MAGNESIUM OXIDE 400 MG TABLET PO SCH (12:32)
[2018-04-30] MEDS: MAGNESIUM SULFATE 1gm PREMIX 1 GM/100 ML BAG IV SCH (12:42)
[2018-04-30] MEDS: MetroNIDAZOLE 500 MG TABLET PO SCH ×2 (13:50→17:12)
--- NOTE | 2018-04-30 15:13 | Ultrasound Report ---
Indication: swelling PROCEDURE: US venous doppler LE LT: Encounter: Initial Comparison: None Technique: Color Doppler duplex and grayscale sonographic imaging of the left lower extremity was performed. Findings: There is no evidence for acute deep venous thrombosis in the left thigh. Specifically, serial graded compression was performed from the inguinal ligament to the popliteal bifurcation, on the left thigh, demonstrating appropriate compressibility of the deep venous system. In addition, color and pulsed Doppler demonstrate appropriate spontaneous flow, variation with respiration, and augmentation with calf compression. At the ankle, normal flow is identified in the posterior tibial veins; these vessels are also normal in caliber. Impression: No evidence of acute DVT in the left lower limb. .
[2018-04-30 15:43] VITALS: BP 103/61; PULSE 112; TEMP 99.9; O2SAT 91
--- NOTE | 2018-04-30 18:21 | Progress Note ---
Oncology Subjective Feeling oximeter for neuropathy may be a little bit better. Fevers overnight. Being discharged today. Exam Vital signs: Temperature 99.9 F 04/30/18 15:43 Pulse Rate 112 H 04/30/18 15:43 Respiratory Rate 18 04/30/18 15:43 Blood Pressure 103/61 04/30/18 15:43 Pulse Oximetry 91 04/30/18 15:43 - Constitutional no acute distress - Routine HEENT Exam Head: Present: normocephalic Eye: Present: EOMI, PERRL Nose: moist mucous membranes - Routine Neck Exam Absent: lymphadenopathy - Routine Respiratory Exam Present: CTA bilaterally. Absent: accessory muscle use - Routine Cardiovascular Exam Present: RRR - Routine Abdominal Exam Present: soft, non tender - Routine Extremities Exam Present: cyanosis, clubbing, no edema - Routine Skin Exam Present: dry, warm - Routine Neurological Exam Present: alert, oriented X3, CN II-XII intact Oncology Results - Labs CBC & Chem 7: 04/30/18 04:18 04/30/18 04:19 Labs: Short CBC 04/30/18 Range/Units 04:18 WBC 23.7 H D (4.5-11.0) T/MM3 Hgb 8.5 L (12-16) GM/DL Hct 27.5 L (36-46) % Plt Count 410 H (130-400) T/MM3 BMP 04/30/18 04:19 Sodium 137 Potassium 4.4 Chloride 99 Carbon Dioxide 26 BUN 11.0 Creatinine 0.6 L Glucose 101 Calcium 9.7 Assessment and Plan Assessment and Plan: Non-small cell lung cancer, squamous cell locally advanced on neoadjuvant therapy that was started on 04/20/18. 2. 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 Currently fairly significant. Affecting activities of daily living. Will probably stop Taxol and good gemcitabine. 3. Leukopenia currently improved with WBC of 23K today 4. Fevers question tumor fever versus infection improve this afternoon 5. Status post C. difficile currently improved Plan home today Follow-up with Ida Glover on Thursday. Continue lab twice a week Due for next cycle of chemotherapy on 05/11/18. Will use carboplatinum and gemcitabine. - Time Spent With Patient Total time spent is greater than 50% in coordination of care (as documented) at patient's floor/unit and/or counseling patient: less than 15 minutes
--- NOTE | 2018-04-30 23:00 | Discharge Summary ---
Discharge Information Date of admission: 04/23/18 09:13 Anticipated date of discharge: 04/30/18 Attending Physician: Winter Caballero MD Primary care physician: Carmen Bartholomew APRN Consults: Consulting Provider: Deangelo Trujillo Reason For Exam: Lung cancer - Discharge Diagnosis (1) Severe sepsis Status: Acute (2) C. difficile colitis Status: Acute Sepsis - Leukocytosis, Tachycardia, Fever -- suspect pulmonary source C diff diarrhea Pneumonia -possible, suspect post obstructive ? drug rash Hypokalemia (Not POA) Non Small cell lung cancer Chemotherapy- started 04/20/18 Neuropathic pain of hand and feet Mouth pain Thrush Hypothyroidism with elevated TSH, Depression Gen debility - Laboratory Labs: White count on admission 24,000 with 85% neutrophils, 1% bands. White count reached a alton of 2.9 on 04.28 before rebounding prior to discharge. D-dimer at admission was 718 electrolytes unremarkable, lactic acid 1.3. C. difficile PCR was positive on 04/25/18 B-12 > 1000 on 04/25/18 TSH 11.3 with free T4 1.15 on 04/25/18 04/30/18 04:18 04/30/18 04:19 - Microbiology Microbiology 04/23/18 10:34 Peripheral/Iv Start Blood Culture - Final No Growth After 5 Days 04/23/18 10:29 Peripheral/Iv Start Blood Culture - Final No Growth After 5 Days - Radiology Radiology: CTA chest, pulmonary emboli protocol on 04/24/18: Pulmonary arteries: Exam is diagnostic to the interlobar pulmonary arterial level. No large or central pulmonary emboli. The segmental and subsegmental pulmonary arteries cannot be well evaluated due to contrast bolus. Other findings: Large right upper lobe mass is again noted with postobstructive atelectasis in the right upper lobe. The prior cavitary foci within the right upper lobe mass have resolved. No axillary adenopathy. Right hilar and paratracheal adenopathy is seen previously. Small pericardial effusion. Upper abdomen shows hepatomegaly but no acute findings. Impression: No large or central pulmonary embolus. ----- Chest x-ray on 04/25/18 demonstrated slight decreased size in right upper lobe mass now measuring 7.3 cm compared to prior 7.9 cm dimension. ----- Venous Doppler left lower extremity on 04/30/18 demonstrated no evidence of DVT in the left lower extremity. History of Present Illness HPI: Patient is a 62-year-old female who is well known to the hospitalist services from recent admissions. She has routinely been under the primary care of Carmen DRIVER at [facility]. She was recently admitted earlier this month for recurrent colitis. At that time she has found to have non-squamous cell lung cancer. This week she did start her 1st round of chemotherapy on 04/20/18 under the care of Dr. Trujillo. The 48 hours following chemotherapy, she felt fine. However, last evening developed fever up to 102, along with generalized leg pain. He was found to have a significantly elevated white count at 28.6 and x- ray did reveal pneumonia. At that time patient was given Levaquin, however, refused admission despite recommendations of the ER provider. Running. She had a follow-up appointment with Dr. Trujillo. She had outpatient labs that continued to reveal leukocytosis, white count of 29.3, hemoglobin of 9.2, 98% neutrophils , 2% bands. Sodium and potassium are normal, BUN 23, creatinine 0.8, otherwise unremarkable. This morning patient did complain of having increased shortness of breath while at the cancer center. It was felt that patient needed admission. Given acute pneumonia accompanied with her newly diagnosed lung cancer. The hospitalist, Dr. Myrick was contacted and accepted. Patient for direct admission as an inpatient. It is expected that her stable be greater than 2 overnights Objective Vital signs: Temperature 99.9 F 04/30/18 15:43 Pulse Rate 112 H 04/30/18 15:43 Respiratory Rate 18 04/30/18 15:43 Blood Pressure 103/61 04/30/18 15:43 Pulse Oximetry 91 04/30/18 15:43 NAD, alert Respirations nonlabored, good airflow, breath sounds relatively clear, no wheezing Regular rhythm, S1-S2 Abdomen soft, nontender Trace edema RLE, +1 edema LLE Height/Weight/BMI: Height 1.65 m Weight 60.9 kg Body Mass Index 22.2 Hospital Course This is a general summary of the patient's hospital course. For more details refer to the complete medical record. Hospital course: 04/23/18 Inpatient admission under the care of Dr. Myrick for sepsis and pneumonia. Chest X-ray from last night reveled large right upper lobe mass with possible post-obstructive pneumonia. Obtain Venous lactate and draw blood cultures on admission. Repeat lactate as per sepsis protocol. Qsofa score- 0/3 at time of admission- continue to follow closely. Initiate IV Levaquin, Cefepime and Vancomycin for antibiotic coverage. Scheduled DuoNeb QID and Pulmicort BID. Oxygen as needed to maintain saturations. Monitor cardiac telemetry. Morphine and Bruce available as needed for pain. With increasing neuropathic pain, will start Neurontin 300mg at night. Will continue with oral swizzle due to recent oral pain. Mycelex for thrush. Normal saline at 100ml/hr for gentle hydration She does wish to be a full code and this orders written. At time of discharge medical care will return to primary care provider, Carmen Marrero APRN at [facility]. 04/24/18 Patient remained febrile last night. Continue cefepime, Levaquin, Vancomycin. Possible post obstructive pneumonia due to known lung cancer, immunocompromised status post chemotherapy. During her last hospitalization, there was concern for cavitation and necrosis of tumor. CT PE protocol performed. No PE. Large right upper lobe mass and postobstructive atelectasis in right upper lobe seen. Patient did not tolerate albuterol during prior visits. Stop DuoNeb, continue Xopenex and Pulmicort. She has been started on gabapentin for neuropathic pain of hands and feet. Significant concern for thrush, Mycelex, and when necessary swizzle solution for mouth pain. She continues to appear very depressed, and withdrawn. Could consider adding medication, specifically Remeron to help with mood and appetite. 04/25/18 Continue cefepime, Levaquin, Vancomycin for coverage of obstructive atelectasis/ pneumonia due to known lung cancer, immunocompromised status post chemotherapy. She has been a bit tachycardic. Suspect secondary to fever. Blood pressure stable. Leukocytosis resolved. TSH showing elevation. Will increase Synthroid to 0.125mg daily. Increase Neurontin to 300mg TID to help neuropathic pain. Will check B12. Increased watery, diarrhea stools. Given recent chemotherapy as well as multiple antibiotics, will check stool culture and C.Diff. Questran added. Stool positive for C diff - will start Oral vancomycin. Questran prn loose stool. Consult PT/OT in am to help improve functional status. 04/26/18 Will stop IV antibiotics. Uncertain how much post-obstructive pneumonia present- -CT suggested postobstructive atelectasis rather than pneumonia. Discharge summary from [facility] with ID feeling fever and leukocytosis secondary to necrotic tumor rather than infectious etiology. With C Diff, continued antibiotics would slow treatment. Continue oral Vancomycin for treatment of C-Diff. Questran as needed for loose stools, and Culturelle for merry replacement Gabapentin increased to 300 TID to help with hand and foot pain. Significant concern for thrush, Mycelex, and when necessary swizzle solution for mouth pain. Leukocytosis resolved - GCSF given by Dr Trujillo. Hgb stable at 8.[address] Trujillo to follow. 04/27/18 Abx dc'd yesterday. Erythematous diffuse rash ? drug rxn. Red man syndrome not typically assoc. with oral vanco (although has been reported) - Benadryl prn & monitor. Given that vanco administered orally is primarily limited to GI tract a drug rash to vanco is less likely compared to IV abx that were previously given. Hgb trending down, currently 7.6. Could be dilutional -- DC IVF since oral intake has been stable. Check stool for occult blood, though given hx of C. diff she may very well have some degree of mucosal irritation contributing to some GI blood loss. G-CSF given yesterday per onc. Discussed depression - pt refuses to take an antidepressant. 04/28/18 Continues on PO Vanco for treatment of C-diff. Overall stools are slowing and are not formed Continue Questran as needed. Culturelle TID Hgb remains decreased at 7.5. Continues on Granix. Oncology is following patient Neuropathy appears to be improving on Neurontin TID Mycelex Christian 5X/day for PO thrush Will have nursing staff ambulate QID 04/29/18 Continues on PO Vanco for treatment of C-diff. Hgb continues to remain stable at 8.0. Will discontinue Granix. Overall peripheral neuropathy is improving on Neurontin. Mycelex Christian 5X/day for PO thrush. 04/30/18-discharge Patient reports she feels better today and has been able to walk without assistance and is beginning to feel things in her palms. Feels slightly more encouraged. Diarrhea is decreasing-stool semi-formed and only having 2 or 3 stools a day. Concerned that she has a little more edema in her left leg than the right. Venous Doppler obtained and negative for clot. Patient's daughter subsequently arrived and reported patient continues to have increased itching and develops mild generalized erythema after every dose of oral vancomycin although macular rash has faded progressively over the past couple of days. She has asked that patient be converted from oral vancomycin to metronidazole to treat C. difficile colitis and also expressed concern about cost of oral vancomycin. Converted to metronidazole with first dose given prior to discharge. Patient is aware that she will need 9 days treatment to complete course for total of 14 days total since using metronidazole for majority of course. Stable for discharge at this time. -Continue metronidazole as above with probiotics for an additional 10-14 days. -Continue Benadryl or Benadryl cream as needed for pruritus. -Continue gabapentin 400 mg 3 times a day for neuropathy. Symptoms believe due to chemotherapy. -Levothyroxine dose increased from 112 g to 125 g daily due to elevated TSH -Daily [id number] magnesium supplement recommended due to hypomagnesemia -Patient to follow-up in oncology office on Thursday and with PCP in 1-2 weeks. Time spent with patient: discharge greater than 30 minutes Resuscitation Status: Full Code Discharge Plan - Discharge Disposition Discharge Date: 04/30/18 Disposition: 01 Discharged Home, Self-Care *Condition: Stable Reason For Visit (Visit label in EMR): pneumonia/fever - Discharge Medications *Discharge Medications: New Acidoph/L.bulg/Bif.b/S.thermop [Bacid Caplet] 2 cap PO TIDWM #60 tab DiphenhydrAMINE [Benadryl] 25 mg PO Q6H PRN cap PRN Reason: Itching Diphenhydramine Cream [Benadryl Extra Strength Cream] 1 applicatio TOP TID PRN tube PRN Reason: Itching Gabapentin [Neurontin] 400 mg PO TID #90 cap Levothyroxine Sodium [Synthroid] 125 mcg PO ACB #30 tab Magnesium Oxide [Magox] 400 mg PO BID #60 tab MetroNIDAZOLE [Flagyl] 500 mg PO TIDWM 9 Days #27 tab Continue Swizzle Solution 5Ml [Lidocaine/Maalox/Benadryl Soln] 5 ml SSW QID Ibuprofen 100 mg PO Q4H PRN PRN Reason: Pain /Fever Acetaminophen [Tylenol] 500 mg PO PRN PRN PRN Reason: fever Discontinued Levothyroxine Tab [Synthroid] 112 mcg PO ACB - Discharge Packet/Instructions *Diet: Regular *Activity: As tolerate, use walker *Pain Management/Treatment: Tylenol or ibuprofen per package instructions; continue gabapentin to help with neuropathy in her hands and feet *Wound Care: Not applicable Additional Instructions: Take metronidazole 3 times daily for 9 days to complete treatment for C. difficile colitis. Continue probiotics 3 times daily for the next 2 weeks to help with treatment for C. difficile, can continue beyond that if you wish. Continue Benadryl cream and tablets as needed for itching. Continue Gabapentin (Neurontin) 400 mg 3 times daily to help with numbness/pain in your hands and feet. Levothyroxine dose has been increased slightly from 112 g daily to 125 g daily. Take a magnesium tablet twice daily-you can get these [id number]. Prescriptions for metronidazole, probiotics, gabapentin, and levothyroxin have been sent to [facility]. Dr. Trujillo does not want you to take antibiotics without being evaluated if you have fever. I suspect her having some low-grade fevers due to tumor which can be treated with Tylenol or ibuprofen. If fever is sustained you' ll need to be evaluated. *Expected Signs/Symptoms: Loose stools which should improve progressively, numbness in your hands/feet, weakness, itching which should improve the longer you are off antibiotics. *Notify Physician if: Recurrent fevers which are persistent, worsening diarrhea , lightheadedness, difficulty swallowing. *During Business Hours Contact: Carmen Bartholomew APRN or Dr. Trujillo *After Business Hours Contact: Call [facility] at [phone] and ask that the on-call physician be paged *Pending Lab/Results: No Pending Lab - Referrals/Follow Up *Referrals/Follow Up: Deangelo Trujillo MD [Physician] - (See Ida in the office on Thursday 05/03.) Carmen Bartholomew APRN [Primary Care Provider] - 05/07/18 10:10 am (1-2 weeks) - Patient Handouts Patient Handouts: Fever in Adults (GEN), Clostridium Difficile Infection (DC) - Dismissal Complete Discharge Instructions are:: Complete Physician Narrative - Narrative Attestation Narrative: Date: 04/30/18 Time: 7639
== END 2018-04-30 19:20 | disposition home or self-care (01) | DRG 871 ==
LOC: SUATTDRO 09:13 → MED 09:13
PROVIDERS: ADMIT Hospitalist; ATTEND Internal Medicine